=== PATIENT | female | born 1950 | race Caucasian/White ===

== ENCOUNTER 2023-08-24 09:43 | Outpatient (CLI) | payer MEDICARE, SELFPAY ==
--- NOTE | 2023-08-24 09:45 | CRLHL7_ITS ---
For Patients: As a result of the Century Cures Act, medical imaging exams and procedure reports are released immediately into your electronic medical record. You may view this report before your referring provider. If you have questions, please contact your health care provider. INDICATION: Cirrhosis COMPARISON: none TECHNIQUE: Real time chowdhury scale imaging and color Doppler analysis was performed of the right upper quadrant. FINDINGS: The patient`s liver is of normal size and has diffusely coarsened echogenicity. Lobular contour of the liver noted. There is a normal appearance of the hepatic IVC and proximal abdominal aorta. There is no evidence of ascites. The gallbladder is of normal size and there is no evidence of intraluminal stones or sludge. The gallbladder wall measures 2 mm in thickness. The common bile duct is of normal size and measures 4.7 mm in diameter at the level of the jaime hepatis. The pancreas appears normal. There is no evidence of a stone or hydronephrosis within the right kidney. The right kidney measures 11.1 cm in length. IMPRESSION: Cirrhotic liver. No ascites. Normal gallbladder. Dictated by Kai Montilla MD @ 08/24/2023 10:52:43 AM (Electronically Signed)
== END 2023-08-24 09:44 | disposition home or self-care (01) ==
PROVIDERS: Visit Provider Physician Assistant Medical
DX: K74.69 Other cirrhosis of liver (principal)
CPT/HCPCS: 76705

== ENCOUNTER 2024-08-31 19:08 | Emergency (ER) | payer MEDICARE, SELFPAY ==
[2024-08-31 19:23] VITALS: BP 145/103; PULSE 117; RESP 16; TEMP 36.3; O2SAT 97
[2024-08-31] MEDS: 0.9 % SODIUM CHLORIDE 500 ML 500 ML IV (20:12)
[2024-08-31 20:14] VITALS: BP 157/97
[2024-08-31 20:20] LABS: Basophils Absolute Auto 0.05 K/uL (0.00-0.30); Basophils Percent Auto 0.8 % (0.0-3.0); Eosinophils Percent Auto 1.5 % (0.0-7.0); Hematocrit 43.7 % (33.0-51.0); Hemoglobin* 14.9 gm/dL (12.0-16.0); Immature Granulocytes Abs Auto 0.01 K/uL (0.00-0.30); Immature Granulocytes Pct Auto 0.2 %; Lymphocytes Absolute Auto 2.44 K/uL (0.90-2.90); Lymphocytes Percent Auto 36.7 % (20-44); Mean Corpuscular HGB Conc 34 gm/dL (32-36); Mean Corpuscular Hemoglobin 30 pg (26-34); Mean Corpuscular Volume 87 fL (80-100); Monocytes Percent Auto 10.2 % (0.0-11.0); Neutrophils Absolute Auto 3.36 K/uL (1.7-7.0); Neutrophils Percent Auto 50.6 % (42.0-72.0); Platelet Count* 135 K/uL (140-440); RDW Coefficient of Variation % 12.5 % (11.5-15.5); Red Blood Count 5.04 m/uL (4.00-5.20); White Blood Count* 6.64 K/uL (4.50-11.00)
--- OUTSIDE RECORDS SUMMARY | 2024-08-31 20:21 | XMS_ITS | Continuity of Care Document ---
Author Organization [facility] Address [address] [place] [address] [address] [place] [address] Phone Care Team Providers Care Case Management Director Name Role Phone Loretta Thompson MD Unavailable Unavailable Medications Medication Instructions Dosage Effective Dates (start - stop) Status Comments Protivin 5 mg-325 mg tablet take 1 - 2 tablet by oral route every 4 - 6 hours as needed for pain 1-2 tablet - Active Procedures Procedure Date Postop followup visit X-ray exam, ankle, complete, 3+ views Oc Open treat distal fibular Fx Postop followup visit X-ray exam, ankle, complete, 3+ views Oc Apply short leg cast, below knee 2007 CAST SUP SHRT LEG [facility] EAC Office/outpatient visit, new, detailed S Advance Directives Directive Yes / No Effective Date File Name No Information Encounters Encounter Description Practice Location Reason(s) For Visit Diagnoses Date Provider Providers Copied on Encounter [facility], [address] [place] [address], [place], [address], [place] tel:[phone] [facility] No Information Jay Quinn. [address] [place] [address], [facility], [place], [place], [id number], . tel:[phone] Referring Provider: Jose Deleon, Federico [address] [place], [address]. tel:[phone] [facility], [address] [facility], [place], [address], [place] tel: [phone] [facility] [place] No Information Unique Goldstein. [address] [facility], [facility] [address], [place], [address], [place]. tel:[phone] Referring Provider: Jose Deleon, Federico [address] [place], [address]. tel: [phone] [facility], [address], [place], [address], [place] tel: [phone] [facility] [place] No Information Anya Patterson. 3 [facility], [address], [id number], [place]. tel:[phone] [facility], [address] [place] [address], [address], [place] tel:[phone] [facility] No Information Anya Patterson. 3 [facility], [address], [id number], [place]. tel:[phone] [facility], [address], [place], [address], [place] tel: [phone] [facility] [place] No Information Anya Patterson. 3 [facility], [address], [id number], [place]. tel:[phone] Office/outpat ient visit, new, detailed [facility], [address], [place], [address], [place] tel: [phone] [facility] No Information Anya Patterson. 3 [facility], [address], [id number], [place]. tel:[phone] Family History Family Member Type Diagnosis Age At Onset No Information Payers Payer name Insurance type Covered alliance party ID Authoriza tion(s) No Information Social History Type Description Quantity Date Captured Comments Sex Female Smoking Status No Information Chief Complaint And Reason For Visit No Information Reason For Referral Reason For Referral No Information History Of Present Illness Encounter Date Complaint History Of Prese nt Illness No Information Functional Status Date Functional Assessmen t No Information Instructions Date Instruction Additional Infor mation No Information Assessments Type Assessment Date No Information Patient Care Teams Name Effective Dates (start - stop) Status Members No Information
--- OUTSIDE RECORDS SUMMARY | 2024-08-31 20:21 | XMS_ITS | Clinical Summary ---
Author Organization [facility] Address [place], [place] [address] Care Team Providers Care Woods Boss Name Role Phone Provider, Non-[facility] Primary Care Provider Un available Immunizations Name Administration Dates Next Due COVID-19 vaccine (Moderna 100mcg/0.5mL) PF, MDV 01/22/2021,12/18/2020 COVID-19 vaccine (Moderna Gilberto estefany 50mcg/0.25mL) PF, MDV 11/13/2021 COVID-19 vaccine (Pfizer-Bio NTech 30mcg/0.3mL) 12YO+ NINI-SUCROSE PF, MDV 04/28/2022 Tdap, Unspecified 05/19/2012 Zoster (Zostavax-ZVL, live) 05/19/2012 Social History Tobacco Use Types Packs/Day Years Used Date Smoking Tobacco: Never Assessed Sex and Gender Information Value Date Recorded Sex Assigned at Not on file Gender Identity Not on file Sexual Orientation Not on file Plan of Treatment Health Maintenance Due Date Last Done Comments Depression screening for age 12+ 1962 BMI (ht and wt on same day) for age 18+ 1968 Hepatitis C screening for ag e 18-79 1968 Colonoscopy through age 75 1995 Lipids for age 45-75 1995 Mammogram for age 45-75 1995 Zoster (shingles) series for age 50+ (2 of 3) 07/14/2012 05/19/2012 DEXA/DXA scan for age 65+ 2015 Pneumococcal series for age 65+ (1 of 1 - PCV) 2015 Tetanus booster 05/19/2022 05/19/2012 COVID-19 vaccine series ( season) 2024 04/28/2022, 11/13/2021, 01/22/2021, Additional history exists Influenza for age 65+ 07/24/2024 Tdap Completed 05/19/2012 Care Teams Woods Boss Relationship Specialty Start Date End Date Provider, Non-[facility] . PCP - General 04/28/22
--- OUTSIDE RECORDS SUMMARY | 2024-08-31 20:22 | XMS_ITS | Encounter Summary ---
Author Organization [facility] Address [address] [place] [address] Care Team Providers Care Back Shoe Worker Name Role Phone Unavailable Primary Care Provider Unavailabl e Encounter Details Date Type Department Care Team (Late Contact Info) Description 06/22/2024 10:00 AM MDT Office Visit [facility] [address] [address] Ulysses Ruiz DMD [address] [place], [place] [id number] Social History Tobacco Use Types Packs/Day Years Used Date Smoking Tobacco: Never Smokeless Tobacco: Never Alcohol Use Standard Drinks/Week Comments Yes 3 (1 standard drink = 0.6 oz pur e alcohol) Comments Unknown Sex and Gender Information Value Date Recorded Sex Assigned at Not on file Legal Sex Female 1:16 PM PDT Gender Identity Not on file Sexual Orientation Not on file documented as of this encounter Miscellaneous Notes * Dental Procedure Details - Ulysses Ruiz DMD - 06/22/2024 10:00 AM MDT Coconut Cooker Delivery Night-guard delivered. Patient instructed on insertion, removal and care. Patient to return for necessary adjustment. documented in this encounter Plan of Treatment Upcoming Encounters Date Type Department Care Team (Late Contact Info) Description 01/16/2025 10:00 AM MST Office Visit [facility] [address] [place] [address] Ulysses Ruiz DMD [address] [place] [address] documented as of this encounter Procedures Procedure Name Priority Date/Time Associated Diagnosis Comments OCCLUSAL GUARD DELIVERY Routine 06/22/2024 10:00 AM MDT documented in this encounter Visit Diagnoses Not on filedocumented in this encounter
--- OUTSIDE RECORDS SUMMARY | 2024-08-31 20:22 | XMS_ITS | Clinical Summary ---
Author Organization [facility] Address [address] [place] [address] Phone Care Team Providers Care Wildlife Control Agent Name Role Phone Doc, Update Unavailable Unavailable Alexis SANTOS, Matti Unavailable [phone] Briana KOHLI - [facility], Maraí Montemayor Primary Care Prov ider [phone] Reason for Visit and Chief Complaint The Chief Complaint is: Follow up diarrhea,vomiting Problems Includes: Problems addressed during this encounter and other active Problems Current Visit Onset Date Resolved Date Provider Conditio n Status Abdominal Pain 12/02/2023 Matti Espinoza PA-C Active Last Documented On 4 1:11PM ; [facility] Cirrhosis 10/14/2022 Kai Byrnes MD Active Last Documented On 2 10:02AM ; [facility] Fatty Liver 07/29/2022 Kai Byrnes MD Active Last Documented On 2 9:09PM ; [facility] Past Visits Onset Date Resolved Date Provider Condition Status Hypertension Systemic 10/14/2022 Kai Byrnes MD Active Last Documented On 2 10:07AM ; [facility] Hyperlipidemia 07/29/2022 Kai Byrnes MD Acti ve Last Documented On 2 9:09PM ; [facility] Iron Deficiency Anemia 07/29/2022 Kai Byrnes MD Active Last Documented On 2 9:09PM ; [facility] Obesity 07/29/2022 Kai Byrnes MD Active Last Documented On 2 9:09PM ; [facility] Nonspecific Abnormal Results of Function Studies Liver 07/16/2022 Kai Byrnes MD Active Last Documented On 2 11:03AM ; [facility] Diarrhea 09/27/2020 Jorge Friedman MD Act darrel Last Documented On 0 3:24PM ; [facility] 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 Abdominal pain ?? Acute, episodic abdominal cramping. Associated N/V/D, flushing without diaphoresis, and palmar erythema/pruritus. ?? Occurs suddenly, without warning, and not associated with PO intake or bowel movements. ?? No alarm symptoms such as unintentional weight loss or GI bleeding. ?? Labs unremarkable without anemia. LFTs normal. ?? Prior bidirectional endoscopies largely unremarkable. ?? Very odd constellation of symptoms and no clear unifying diagnosis identified at this time. ?? Denies panic disorder. Considered dumping syndrome given history of prior gastric surgery, but feel this is unlikely as symptoms are not postprandial and occur so sporadically. ?? Other possibilities include neuroendocrine tumor / VIPoma, mast cell activation syndrome, AIP, pheochromocytoma. ?? Check 24 hours urine 5-HIAA, serum VIP, and tryptase. ?? Reportedly had recent CT for surveillance of prior GIST, and will request this report for review to ensure no lesion/mass. ?? Advised that she seek medical attention during an episode so evaluation can also be performed at that time. ?? Trial of hyoscyamine SL PRN. - Last Documented On 12/02/2023 8:24PM ; [facility] Pending Tests Order Diagnosis Results Due Ordering Noe serrano Follow Up OV - Follow-Up with VANI 3 Months with PA Unspecified abdominal pain 12/02/23 Matti Espinoza PA-C Last Documented On 4 4:00PM ; [facility] Lab URINE: 5-Hydroxyindo leacetic Acid (HIAA), Quant, 24-Hour 12/09/23 Matti Espinoza PA-C Last Documented On 4 8:22PM ; [facility] Lab LAB: Tryptase 12/09/23 Matti Welch Last Documented On 4 8:22PM ; [facility] Lab LAB: Vasoactive Intestinal Polypeptide (VIP), P lasma 12/09/23 Matti Espinoza PA-C Last Documented On 4 8:22PM ; [facility] Future Tests Order Diagnosis Results Due Ordering Pr ovider Follow Up OV - Follow-Up with VANI 3 Months with PA Unspecified abdominal pain 03/03/24 Matti Espinoza PA-C Last Documented On 4 10:51AM ; [facility] Assessments Includes: Assessments from this encounter Findings - Fatty liver - Last Documented On 12/02/2023 8:24PM ; [facility] - Cirrhosis - Last Documented On 12/02/2023 8:24PM ; [facility] - Abdominal pain - Last Documented On 12/02/2023 8:24PM ; [facility] Medical Equipment - Implanted Devices Includes: Current Devices No Medical Equipment Recorded Medications Includes: Medications discussed during this encounter and other current Medications New / Renewed during this visit Matti Espinoza PA-C on 12/02/2023 Hyoscyamine Sulfate 0.125 MG Sublingual Tablet Sublingual Provider: Matti Welch 30 day supply: 90 tablet, 1 refills Diagnosis: Unspecified abdominal pain 1 every 4 - 6 hours as needed Pharmacy: [facility] #[id number] - [address] [facility], [address] - Last Documented On 4 1:28PM By Matti Espinoza PA-C ; [facility] Current Medications (continue as prescribed) Tylenol PM Extra Strength 500-25 MG Oral Tablet 2023 Provider: Diagnosis: Last Documented On 4 10:25AM By Vickie Johns ; [facility] Pantoprazole Sodium 40 MG Oral Packet 03/03/2024 Pro vider: Diagnosis: PO Last Documented On 4 10:25AM By Vickie Johns ; [facility] Acyclovir 400 MG Oral Tablet 03/03/2024 Provider: Diagnosis: PO. Last Documented On 4 10:26AM By Vickie Johns ; [facility] Medications Administered Includes: Administered Medications from this encounter No Administered Medications Recorded Vital Signs Includes: Vital Signs from this encounter Vital Name 12/02/2023 12:45P Blood Pressure Sitting L 132/74 Pulse Rate-Sitting (bpm) 64 Height (in) 64 Weight (lb) 177 Body Mass Index (kg/m2) 30.4 Body Surface Area (m2) 1.9 Last Documented: On 12/02/2023 12:49P M ; [facility] Results Includes: Results discussed during this encounter No Results Recorded For Specified Dates History of Present Illness Includes: History of Present Illness from this encounter RODOLFO Cruz is a 73 year old female. - Allergy list reviewed - Medication reconciliation performed This is a 73 year old female with history of GIST s/p neoadjuvant chemotherapy, s/p partial gastrectomy, steatotic liver disease with concern for cirrhosis presenting for follow up. Has seen my colleagues Dr Byrnes and Joceline Temple PA-C for management of liver disease. Today specifically, patient wishes to discuss chronic abdominal symptoms. Reports intermittent acute episodes of abdominal pain, N/V, and diarrhea. Occurs suddenly, without warning. Feels flushed during these episodes, with palmar erythema and itching. Unclear triggers, and does not occur with eating, or with bowel movements. Takes pepto-bismol with mild relief. Lasts a few hours, then slowly resolves. Next day, feels fatigued but no more pain or N/V/D. By the next day, she feels back to her normal self. These episodes occur 4-5 times a year. Never went to the ER during these episodes for evaluation. At baseline, she feels well. No pain. Has some early satiety following her partial gastrectomy, but no vomiting. GERD well controlled on PPI therapy. No GI bleeding. Lost 40 pounds intentionally this past year, with intermittent fasting. Most recent labs 07/2023 unremarkable without anemia, and only mild thrombocytopenia. LFTs normal. Reportedly had CT done recently, as per her oncologist. EGD/colonoscopy 06/2022 unremarkable with biopsies negative for H pylori, celiac disease, and colitis. No ETOH misuse or illicit drug use. Denies anxiety or history of panic attacks. Social History Description Last Updated Alcoholic drinks per drinking day 2-3 x aweek 12/02/2023 Last Documented On 4 8:24PM ; [facility] Smoking an unspecified numbe r of cigarettes per day Number of cigarettes per day 12/02/2023 Last Documented On 4 8:24PM ; [facility] Alcoholic drinks per drinking day 08/2024 Last Documented On 4 8:24PM ; [facility] Caffeine use 12 oz per day 12/02/2023 Last Documented On 4 8:24PM ; [facility] Not a current smokeless tobacco user 08/2024 Last Documented On 4 8:24PM ; [facility] Not a current smoker 12/02/2023 Last Documented On 4 8:24PM ; [facility] Not using drugs 12/02/2023 Last Documented On 4 8:24PM ; [facility] Using marijuana Once per week 12/02/2023 Last Documented On 4 8:24PM ; [facility] Smoking Status Unknown Procedures and Surgical History Surgical History Last Updated History of abdominal / peritoneal surger y 12/02/2023 Last Documented On 4 8:24PM ; [facility] History of eye surgery 12/02/2023 Last Documented On 4 8:24PM ; [facility] History of knee surgery 12/02/2023 Last Documented On 4 8:24PM ; [facility] Medical History Includes: Medical History addressed during this encounter Description Last Updated Complete colonoscopy 07/09/2022 EGD 07-09 ~Fibroscan 10-14-2023 12/02/2023 Last Documented On 4 8:24PM ; [facility] History of arthritis 12/02/2023 Last Documented On 4 8:24PM ; [facility] History of cancer GIST 12/02/2023 Last Documented On 4 8:24PM ; [facility] History of migraine headache 12/02/2023 Last Documented On 4 8:24PM ; [facility] Family History Includes: Family History addressed during this encounter Description Last Updated Family history of No Family History of B reast Cancer 12/02/2023 Last Documented On 4 8:24PM ; [facility] Family history of No Family History of C eliac Disease 12/02/2023 Last Documented On 4 8:24PM ; [facility] Family history of No Family History of C olon Polyps 12/02/2023 Last Documented On 4 8:24PM ; [facility] Family history of No Family History of C olorectal Cancer 12/02/2023 Last Documented On 4 8:24PM ; [facility] Family history of No Family History of C rohn's Disease 12/02/2023 Last Documented On 4 8:24PM ; [facility] Family history of No Family History of Esophageal Cancer/Duenas's Esophagus 12/02/2023 Last Documented On 4 8:24PM ; [facility] Family history of No Family History of G astric Cancer 12/02/2023 Last Documented On 4 8:24PM ; [facility] Family history of No Family History of P ancreatic Cancer 12/02/2023 Last Documented On 4 8:24PM ; [facility] Family history of No Family History of U lcerative Colitis 12/02/2023 Last Documented On 4 8:24PM ; [facility] Family history of No Family History of U terine/Cervical Cancer 12/02/2023 Last Documented On 4 8:24PM ; [facility] No known Family History of Breast Cancer 12/02/2023 Last Documented On 4 8:24PM ; [facility] No known Family History of Celiac Diseas e 12/02/2023 Last Documented On 4 8:24PM ; [facility] No known Family History of Colon Polyps 12/02/2023 Last Documented On 4 8:24PM ; [facility] No known Family History of Colorectal Ca ncer 12/02/2023 Last Documented On 4 8:24PM ; [facility] No known Family History of Crohn's Disea se 12/02/2023 Last Documented On 4 8:24PM ; [facility] No known Family History of Esophageal Ca ncer/Duenas's Esophagus 12/02/2023 Last Documented On 4 8:24PM ; [facility] No known Family History of Gastric Cance r 12/02/2023 Last Documented On 4 8:24PM ; [facility] No known Family History of Pancreatic Ca ncer 12/02/2023 Last Documented On 4 8:24PM ; [facility] No known Family History of Ulcerative Co litis 12/02/2023 Last Documented On 4 8:24PM ; [facility] No known Family History of Uterine/Cervi yolanda Cancer 12/02/2023 Last Documented On 4 8:24PM ; [facility] Review of Systems Includes: Review of Systems from this encounter No Review of Systems Recorded Mental Status Includes: Mental Status from this encounter No Mental Status Recorded Functional Status Includes: Functional Status from this encounter No Functional Status Recorded Physical Exam Includes: Physical Exam from this encounter Allergies Includes: Active Allergies Substance Type Reaction Onset Date Resolved Date Statu s Amoxicillin Allergy 04/12/2021 Active Last Documented On 4 10:31AM ; [facility] Encounters Encounter Provider Location Date Check-In Time Check-Out Time Diagnosis Office Visit PASav Espinoza PA-C [facility] 12/02/19 24 12:38PM 1:42PM Fatty Liver,Cirrhos is,Abdominal Pain Insurance Includes: Active Insurance Policies Plan Name Member ID Group # Subscriber Relationship Effect darrel Dates 1 - [employer] Claim [id number] Suzanna zurita Clinical Notes Includes: Clinical Notes from this encounter No Clinical Notes Recorded
--- OUTSIDE RECORDS SUMMARY | 2024-08-31 20:22 | XMS_ITS | Clinical Summary ---
Author Organization [facility] Address [address] [place] [address] Care Team Providers Care Varnish Dipper Name Role Phone Unavailable Primary Care Provider Unavailabl e Allergies Active Allergy Reactions Criticality Noted Date Comments Amoxicillin Hives,Rash,Other High 03/26/1998 1998-03-26 1998-03-26, all over rash, avoid Aspirin GI bleeding 09/25/2021 Not sure if from the cancer or this Imatinib Other Medium 10/27/2019 Edema; eyelid edema and generalized Nsaids (Non-Steroidal Anti-Inflammatory Drug) GI bleeding 09/25/2021 Not sure if from the cancer or this Medications acyclovir (ZOVIRAX) 400 mg tablet Take 2 capsules by mouth. 03/03/2024 Active acetaminophen (TYLENOL) 500 mg tablet Take 1,000 mg by mouth. Active pantoprazole (PROTONIX) 40 mg EC tablet Take 1 tablet by mouth every morning before breakfast. Do not crush, chew, or split. 04/19/2024 Active ACYCLOVIR ORAL Activ e MULTIVITAMIN ORAL Active pantoprazole (PROTONIX) 40 mg EC tablet Active Active Problems Problem Noted Date Diagnosed Date Iron deficiency 07/13/2024 Hyperlipidemia 07/29/2022 Gastroesophageal reflux disease 10/31/2019 S/P total knee replacement, right 02/23/2019 Encounters Date Type Department Care Team Description 07/13/2024 10:00 AM MDT Office Visit [facility] [address] [place] [address] Dez Gan, ROBBI 06/22/2024 10:00 AM MDT Office Visit [facility] [address] [place] [address] Ulysses Ruiz DMD 06/14/2024 10:00 AM MDT Office Visit [facility] [address] [address] Ulysses Ruiz DMD Encounter for dental examination and cleaning without abnormal findings (Primary Dx) from Last 3 Months Social History Tobacco Use Types Packs/Day Years Used Date Smoking Tobacco: Never Smokeless Tobacco: Never Tobacco Cessation:Counseling Given: Not Answered Alcohol Use Standard Drinks/Week Comments Yes 3 (1 standard drink = 0.6 oz pur e alcohol) Comments Unknown Sex and Gender Information Value Date Recorded Sex Assigned at Not on file Legal Sex Female 1:16 PM PDT Gender Identity Not on file Sexual Orientation Not on file Last Filed Vital Signs Vital Sign Reading Time Taken Comments Blood Pressure 137/74 06/14/2024 10:04 AM MDT Pulse 64 06/14/2024 10:04 AM MDT Temperature - - Respiratory Rate - - Oxygen Saturation - - Inhaled Oxygen Concentration - - Weight 79.4 kg (175 lb) 06/14/2024 10:04 AM MDT Height 160 cm (5' 3) 06/14/2024 10:04 AM MDT Body Mass Index 31 06/14/2024 10:04 AM MDT Plan of Treatment Upcoming Encounters Date Type Department Care Team (Late st Contact Info) Description 01/16/2025 10:00 AM MST Office Visit [facility] [address] [place] [address] Ulysses Ruiz DMD [address] [place] [address] [phone] Health Maintenance Due Date Last Done Comments Dental Oral Exam 12/16/2024 06/14/2024 Dental Prophylaxis 12/16/2024 06/14/2024 Dental X-Ray: Bitewings 12/16/2024 06/14/2024 Dental CBCT 06/14/2027 06/14/2024 Dental X-Ray: Full Mouth 06/16/2027 06/15/2024, 05/24 Dental X-Ray: Panoramic 06/18/2027 06/17/2024 Procedures Procedure Name Priority Date/Time Associated Diagnosis Comments PERIO CONSULT Routine 07/13/2024 10:00 AM MDT OCCLUSAL GUARD DELIVERY Routine 06/22/20 10:00 AM MDT OCCLUSAL GUARD ? HARD APPLIANCE, FULL ARCH Routine 06/14/2024 10:00 AM MDT ORAL HYGIENE INSTRUCTIONS Routine 2023 10:00 AM MDT PROPHYLAXIS - ADULT Routine 06/14/2024 1 0:00 AM MDT Encounter for dental examination and cleaning without abnormal findings INTRAORAL PHOTO Routine 06/14/2024 10:00 AM MDT INTRAORAL PHOTO Routine 06/14/2024 10:00 AM MDT INTRAORAL PHOTO Routine 06/14/2024 10:00 AM MDT INTRAORAL PHOTO Routine 06/14/2024 10:00 AM MDT ADDITIONAL X-RAY Routine 06/14/2024 10:0 0 AM MDT ADDITIONAL X-RAY Routine 06/14/2024 10:0 0 AM MDT ADDITIONAL X-RAY Routine 06/14/2024 10:0 0 AM MDT ADDITIONAL X-RAY Routine 06/14/2024 10:0 0 AM MDT ADDITIONAL X-RAY Routine 06/14/2024 10:0 0 AM MDT POCKETED SPRING ASSEMBLER CBCT Routine 06/14/2024 10:00 AM MDT COMPREHENSIVE ORAL EVALUATION - NEW OR ESTABLISHED PATIENT Routine 06/14/2024 10:00 AM MDT Encounter for dental examination and cleaning without abnormal findings SINGLE X-RAY Routine 06/14/2024 10:00 AM MDT BITEWINGS - FOUR RADIOGRAPHIC IMAGES Routine 06/14/2024 10:00 AM MDT 2 ROOT CANAL Routine 06/14/2024 12:00 AM MDT 5 DO COMPOSITE FILLING Routine 12:00 AM MDT 4 MOD COMPOSITE FILLING Routine 06/14/20 12:00 AM MDT 31 MOD AMALGAM FILLING Routine 12:00 AM MDT 30 ZIRCONIA CROWN Routine 06/14/2024 12: 00 AM MDT 3 ZIRCONIA CROWN Routine 06/14/2024 12:0 0 AM MDT 2 ZIRCONIA CROWN Routine 06/14/2024 12:0 0 AM MDT 10 ML COMPOSITE FILLING Routine 06/14/20 12:00 AM MDT 9 MDL COMPOSITE FILLING Routine 06/14/20 12:00 AM MDT 8 ML COMPOSITE FILLING Routine 12:00 AM MDT 20 DO COMPOSITE FILLING Routine 06/14/20 12:00 AM MDT 13 DO AMALGAM FILLING Routine 06/14/2024 12:00 AM MDT 12 DO AMALGAM FILLING Routine 06/14/2024 12:00 AM MDT 14 ZIRCONIA CROWN Routine 06/14/2024 12: 00 AM MDT 15 ZIRCONIA CROWN Routine 06/14/2024 12: 00 AM MDT 19 ZIRCONIA CROWN Routine 06/14/2024 12: 00 AM MDT 18 ZIRCONIA CROWN Routine 06/14/2024 12: 00 AM MDT from Last 3 Months Insurance [facility]
--- OUTSIDE RECORDS SUMMARY | 2024-08-31 20:22 | XMS_ITS ---
Author Organization [facility] Address [address] [place] [address] Care Team Providers Care Pie Maker Name Role Phone Unavailable Unavailable Unavailable Surgery Details Not on file Complications Check Surgery Details section. Procedure Estimated Blood Loss Check Surgery Details section. Procedure Findings Check Surgery Details section. Procedure Specimens Taken Check Surgery Details section.
--- OUTSIDE RECORDS SUMMARY | 2024-08-31 20:22 | XMS_ITS | Referral Summary ---
Author Organization [facility] Address [address] [place] [address] Care Team Providers Care Agricultural Crop Farm Manager Name Role Phone Unavailable Primary Care Provider Unavailabl e Encounters Date Type Department Care Team Description 07/13/2024 10:00 AM MDT Office Visit [address] [id number] Dez Gan DDS 06/22/2024 10:00 AM MDT Office Visit [facility] [address] [place] [address] Ulysses Ruiz DMD 06/14/2024 10:00 AM MDT Office Visit [address] [address] Ulysses Ruiz DMD Encounter for dental examination and cleaning without abnormal findings (Primary Dx) from Last 3 Months Allergies Active Allergy Reactions Criticality Noted Date [...] 10/31/2019 S/P total knee replacement, right 02/23/2019 Social History Tobacco Use Types Packs/Day Years [...] Description 01/16/2025 10:00 AM MST Office Visit [facility] [address] [place] [address] Ulysses Ruiz, DMD [address] [place] [address] Procedures Procedure Name Priority Date/Time Associated Diagnosis [...] X-RAY Routine 06/14/2024 10:0 0 AM MDT CLAIMS AUDITOR CBCT Routine 06/14/2024 10:00 AM MDT COMPREHENSIVE [...] AM MDT from Last 3 Months Insurance [facility] [place] [id number]
--- OUTSIDE RECORDS SUMMARY | 2024-08-31 20:22 | XMS_ITS | Clinical Summary ---
Author Organization [facility] Address [address] [place] [address] Phone Care Team Providers Care Executive Admin Name Role Phone Doc, Update Unavailable Unavailable Matti Espinoza PA-C Unavailable [phone] Briana KOHLI - [facility], María Montemayor Primary Care Prov ider [phone] Reason for Visit and Chief Complaint The Chief Complaint is: Follow up Fatty Liver Problems Includes: Problems addressed during this encounter and other active Problems Current Visit Onset Date Resolved Date Provider Conditio n Status Cirrhosis 10/14/2022 Kai Byrnes MD Active Last Documented On 2 10:02AM ; [facility] Hypertension Systemic 10/14/2022 Kai Byrnes MD Active Last Documented On 2 10:07AM ; [facility] Hyperlipidemia 07/29/2022 Kai Byrnes MD Acti ve Last Documented On 2 9:09PM ; [facility] Iron Deficiency Anemia 07/29/2022 Kai Byrnes MD Active Last Documented On 2 9:09PM ; [facility] Fatty Liver 07/29/2022 Kai Byrnes MD Active Last Documented On 2 9:09PM ; [facility] Obesity 07/29/2022 Kai Byrnes MD Active Last Documented On 2 9:09PM ; [facility] Past Visits Onset Date Resolved Date Provider Condition Status Abdominal Pain 12/02/2023 Matti Espinoza PA-C Active Last Documented On 4 1:11PM ; [facility] Nonspecific Abnormal Results of Function Studies Liver 07/16/2022 Kai Byrnes MD Active Last Documented On 2 11:03AM ; [facility] Diarrhea 09/27/2020 Jorge Friedman MD Act darrel Last Documented On 0 3:24PM ; [facility] 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 Jorge Friedman MD Active Last Documented On 0 9:51AM ; [facility] Plan of Treatment - repeat labs in 4 months including: CMP, CBC, INR, AP - repeat FibroScan now to reassess steatosis/fibrosis - ascites/edema: Euvolemic on exam today. - HE: none; not on medications - HCC screenin08/2023 RUQ US negative, repeat 02/2024. - EV: last EGD (07/09/22) was without varices. Consider repeat in 06/2024, pending FibroScan results. - immune status: completed HAV and HBV vaccines. - hepatotoxins: she uses tylenol 625 mg qhs, 3 alcoholic drinks per week, and ibuprofen 400-600 mg every 1-2 weeks. Discussed okay to continue tylenol, and would ask her to avoid all NSAIDs. In regards to alcohol, if her repeat FibroScan shows F4 fibrosis, she should discontinue all alcohol use. - iron deficiency anemia: no clear cause on bidirectional endoscopy 07/09/22; labs have been stable x1 year without any need for iron supplementation. - follow-up visit in 6 months - Last Documented On 09/15/2023 10:19AM ; [facility] Pending Tests Order Diagnosis Results Due Ordering Noe serrano Lab LAB: Complete Metabo lic Panel (CMP) 06/04/23 Joceline Temple PA-C Last Documented On 3 2:49PM ; [facility] Lab LIVER: Prothrombin Time (PT)/INR Joceline Temple PA-C Last Documented On 3 2:49PM ; [facility] Lab LAB: Complete Blood Count (CBC) with Differenti al 06/04/23 Joceline Temple PA-C Last Documented On 3 2:49PM ; [facility] Imaging - Ultrasound RUQ Abdominal Ultrasound Other cirrhosis of liver 08/26/23 Joceline Temple PA-C Last Documented On 3 2:08PM ; [facility] Follow Up OV - Follow-Up with VANI 6 Months with PA Other cirrhosis of liver 09/15/23 Joceline Temple PA-C Last Documented On 4 2:17PM ; [facility] Imaging - FibroScan FibroScan Other cirrhosis of liver Joceline Temple PA-C Last Documented On 3 10:07AM ; [facility] Assessments Includes: Assessments from this encounter Findings - Hypertension - Last Documented On 09/15/2023 10:19AM ; [facility] - Fatty liver - Last Documented On 09/15/2023 10:19AM ; [facility] - Cirrhosis - Last Documented On 09/15/2023 10:19AM ; [facility] - Hyperlipidemia - Last Documented On 09/15/2023 10:19AM ; [facility] - Obesity - Last Documented On 09/15/2023 10:19AM ; [facility] - Iron deficiency anemia - Last Documented On 09/15/2023 10:19AM ; [facility] Suzanna is a pleasant 73-year-old female with 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 She has lost around 35 lb in the last year with normalization of her liver enzymes. Congratulated her on this great achievement. - Last Documented On 09/15/2023 10:19AM ; [facility] Medical Equipment - Implanted Devices Includes: Current Devices No Medical Equipment Recorded Medications Includes: Medications discussed during this encounter and other current Medications Current Medications (continue as prescribed) Tylenol PM Extra Strength 500-25 MG Oral Tablet 2023 Provider: Diagnosis: Last Documented On 4 10:25AM By Vickie Johns ; [facility] Pantoprazole Sodium 40 MG Oral Packet 03/03/2024 Pro vider: Diagnosis: PO Last Documented On 4 10:25AM By Vickie Johns ; [facility] Acyclovir 400 MG Oral Tablet 03/03/2024 Provider: Diagnosis: PO. Last Documented On 4 10:26AM By Vickie Johns ; [facility] Hyoscyamine Sulfate 0.125 MG Sublingual Tablet Sublingual 12/02/2023 Provider: Matti Welch Diagnosis: Unspecified abdo jose pain 1 every 4 - 6 hours as needed Last Documented On 4 1:28PM By Matti Espinoza PA-C ; [facility] Medications Administered Includes: Administered Medications from this encounter No Administered Medications Recorded Vital Signs Includes: Vital Signs from this encounter Vital Name 09/15/2023 09:50A Blood Pressure Sitting L 148/92 Pulse Rate-Sitting (bpm) 64 Height (in) 64 Weight (lb) 177.4 Body Mass Index (kg/m2) 30.5 Body Surface Area (m2) 1.9 Last Documented: On 09/15/2023 9:52AM ; 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 She was last seen in clinic 6 months ago after intentionally losing 25 lb. She is feeling well, has no concerns today. She is wearing a mask due to recent COVID exposure. She has questions about if she has liver disease or not. She never knows what is answer on forms etc. She has no new symptoms of liver disease. Specifically she states no jaundice, edema, ascites, confusion abdominal pain. Her GERD is well controlled on pantoprazole 40 mg daily. If she holds this medicine she has return of significant heartburn. She completed labs in July that show a meld of 7, overall her labs were normal aside from a platelet of 145. She is up-to-date on HCC screening with a negative ultrasound 08/24/2023. She does consume alcohol around 3 drinks per week. She did complete the HBV and HAV vaccine series. Social History Description Last Updated Alcoholic drinks per drinking day 1 long dickerson every other day 09/15/2023 Last Documented On 3 10:19AM ; [facility] Drug use 09/15/2023 Last Documented On 3 10:19AM ; [facility] Caffeine use 12 oz per day 09/15/2023 Last Documented On 3 10:19AM ; [facility] Not a current smokeless tobacco user Last Documented On 3 10:19AM ; [facility] Not a current smoker 09/15/2023 Last Documented On 3 10:19AM ; [facility] Using marijuana Once per week 09/15/2023 Last Documented On 3 10:19AM ; [facility] Smoking Status Unknown Procedures and Surgical History Surgical History Last Updated Prior surgery Tumor removed from stomach 11/01/2019 09/15/2023 Last Documented On 3 10:19AM ; [facility] History of eye surgery 09/15/2023 Last Documented On 3 10:19AM ; [facility] History of knee surgery 09/15/2023 Last Documented On 3 10:19AM ; [facility] Medical History Includes: Medical History addressed during this encounter Description Last Updated Complete colonoscopy and EGD 07/09/2022 09/15/2023 Last Documented On 3 10:19AM ; [facility] History of arthritis 09/15/2023 Last Documented On 3 10:19AM ; [facility] History of cancer GIST 09/15/2023 Last Documented On 3 10:19AM ; [facility] History of migraine headache 09/15/2023 Last Documented On 3 10:19AM ; [facility] Family History Includes: Family History addressed during this encounter Description Last Updated No known Family History of Breast Cancer 09/15/2023 Last Documented On 3 10:19AM ; [facility] No known Family History of Celiac Diseas e 09/15/2023 Last Documented On 3 10:19AM ; [facility] No known Family History of Colon Polyps 09/15/2023 Last Documented On 3 10:19AM ; [facility] No known Family History of Colorectal Ca ncer 09/15/2023 Last Documented On 3 10:19AM ; [facility] No known Family History of Crohn's Disea se 09/15/2023 Last Documented On 3 10:19AM ; [facility] No known Family History of Esophageal Ca ncer/Duenas's Esophagus 09/15/2023 Last Documented On 3 10:19AM ; [facility] No known Family History of Gastric Cance r 09/15/2023 Last Documented On 3 10:19AM ; [facility] No known Family History of Pancreatic Ca ncer 09/15/2023 Last Documented On 3 10:19AM ; [facility] No known Family History of Ulcerative Co litis 09/15/2023 Last Documented On 3 10:19AM ; [facility] No known Family History of Uterine/Cervi yolanda Cancer 09/15/2023 Last Documented On 3 10:19AM ; [facility] Review of Systems Includes: Review of Systems from this encounter Systemic: Not feeling tired. No fever. Recent weight loss. No recent weight gain. Head: No headache. Cardiovascular: No chest pain or discomfort and no palpitations. Pulmonary: No shortness of breath. No cough and no chronic wheezing. Gastrointestinal: No anorexia. No dysphagia. Heartburn. No nausea, no vomiting, and no hematemesis. No bloating and no abdominal pain. No jaundice, no change in bowel habit, no melena, no hematochezia, and no mucus in the stool. No diarrhea and no constipation. No rectal pain. Genitourinary: No hematuria and no increase in urinary frequency. No burning sensation during urination and no . Endocrine: No polydipsia and no excessive sweating. Hematologic: No tendency for easy bruising. Neurological: No dizziness. Psychological: No anxiety and no depression. Skin: Pruritus and rash:. Mental Status Includes: Mental Status from this encounter Description No anxiety Functional Status Includes: Functional Status from this encounter No Functional Status Recorded Physical Exam Includes: Physical Exam from this encounter Allergies Includes: Active Allergies Substance Type Reaction Onset Date Resolved Date Statu s Amoxicillin Allergy 04/12/2021 Active Last Documented On 4 10:31AM ; [facility] Encounters Encounter Provider Location Date Check-In Time Check-Out Time Diagnosis Office Visit PA- 20 Min Joceline Temple PA-C [facility] Office 09/15/20 23 9:36AM 10:19AM Fatty Liver,Cirrhosi s,Iron Deficiency Anemia,Hyperte nsion Systemic,Obesi ty,Hyperlipide patria Insurance Includes: Active Insurance Policies Plan Name Member ID Group # Subscriber Relationship Effect darrel Dates 1 - [employer] Claim [id number] Suzanna zurita Clinical Notes Includes: Clinical Notes from this encounter No Clinical Notes Recorded
--- OUTSIDE RECORDS SUMMARY | 2024-08-31 20:22 | XMS_ITS | Clinical Summary ---
Author Organization [facility] Address [address] [place] [address] Phone Care Team Providers Care Airfreight Loading Supervisor Name Role Phone Doc, Update Unavailable Unavailable Alexis SANTOS, Matti Unavailable [phone] Briana KOHLI - [facility], María Montemayor Primary Care Prov ider [phone] Reason for Visit and Chief Complaint FibroScan Problems Includes: Problems addressed during this encounter and other active Problems All Visits Onset Date Resolved Date Provider Condition S tatus Abdominal Pain 12/02/2023 Matti Espinoza PA-C Active Last Documented On 4 1:11PM ; [facility] Cirrhosis 10/14/2022 Kai Byrnes MD Active Last Documented On 2 10:02AM ; [facility] Hypertension Systemic 10/14/2022 Kai Byrnes MD Active Last Documented On 2 10:07AM ; [facility] Hyperlipidemia 07/29/2022 Kai Byrnes MD Acti ve Last Documented On 2 9:09PM ; [facility] Iron Deficiency Anemia 07/29/2022 Kai Byrnes MD Active Last Documented On 2 9:09PM ; [facility] Fatty Liver 07/29/2022 Kai Byrnes MD Active Last Documented On 2 9:09PM ; [facility] Obesity 07/29/2022 Kai Byrnes MD Active Last Documented On 2 9:09PM ; [facility] Nonspecific Abnormal Results of Function Studies Liver 07/16/2022 Kai Byrnes MD Active Last Documented On 2 11:03AM ; [facility] Diarrhea 09/27/2020 Jorge Friedman MD Act darrel Last Documented On 0 3:24PM ; [facility] 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 Jorge Friedman MD Active Last Documented On 0 9:51AM ; [facility] Plan of Treatment Pending Tests Order Diagnosis Results Due Ordering P rovider Lab LAB: Complete Metabo lic Panel (CMP) 06/04/23 Joceline Temple PA-C Last Documented On 3 2:49PM ; [facility] Lab LIVER: Prothrombin Time (PT)/INR Joceline Temple PA-C Last Documented On 3 2:49PM ; [facility] Lab LAB: Complete Blood Count (CBC) with Differenti al 06/04/23 Joceline Temple PA-C Last Documented On 3 2:49PM ; [facility] Imaging - Ultrasound RUQ Abdominal Ultrasound Other cirrhosis of liver 08/26/23 Joceline Temple PA-C Last Documented On 3 2:08PM ; [facility] Imaging - FibroScan FibroScan Other cirrhosis of liver Joceline Temple PA-C Last Documented On 3 10:07AM ; [facility] Assessments Includes: Assessments from this encounter Findings FibroScan (Transient Elastography of Liver) Report Test Date: 10/14/2023 Indication for exam: Cirrhosis Test Result: F3, S1-S2 Diagnosis:NAFLD/MASLD with advanced F3 Fibrosis Median liver stiffness: 10.3 kPa CAP score: 251 dB/m Image quality overall: good. - Last Documented On 10/19/2023 5:15AM ; [facility] ----- Procedure description: The patient was fasting for at least 3 hours prior to the procedure. The following were verified prior to performance of FibroScan: 1. Patient age was 18 years or older 2. Patient did not have a wound in the FibroScan region of interest There were no obvious technical difficulties related to the performance of the procedure. The patient underwent FibroScan test of liver stiffness which is a non-invasive measurement of shear wave speed and equivalent stiffness of liver. The procedure was performed without difficulty. Interpretation of FibroScan Results: The FibroScan device measures the liver's stiffness, a physical property of the liver which correlates with the stage of fibrosis. The FDA has approved FibroScan for measurement of liver stiffness as a surrogate for stage of liver fibrosis, but FibroScan does not directly measure liver fibrosis nor does FibroScan give information regarding other aspects of liver histology, such as the degree of inflammation or the type of liver injury. Stage of fibrosis measured by FibroScan may be less accurate (falsely increased) by hepatic steatosis, increased body mass index, hepatic inflammation (as may be reflected by ALT >130), hepatic congestion, infiltrative disease of the liver, hepatic iron accumulation, or post-prandial state. These factors must be considered when interpreting FibroScan results. The following table displays the relationships of liver stiffness values to stage of liver fibrosis by etiology of liver disease. Cutoffs vary by etiology of liver disease. For example, the cutoff for cirrhosis is >17 for cholestatic liver diseases such as PBC or PSC, compared to a cutoff >12 for chronic hepatitis C. Interpretation of controlled attenuation parameter (CAP) for hepatic steatosis detection: CAP is a tool to determine grade of hepatic steatosis with values ranging from 100 to 400 dB/m. Higher numbers indicate more pronounced steatosis. As with all procedures and tests, the results of FibroScan must be interpreted in the context of the patient's clinical and demographic features. - Last Documented On 10/19/2023 5:15AM ; [facility] Equipment - Implanted Devices Includes: Current Devices No Medical Equipment Recorded Medications Includes: Medications discussed during this encounter and other current Medications Current Medications (continue as prescribed) Tylenol PM Extra Strength 500-25 MG Oral Tablet 2023 Provider: Diagnosis: Last Documented On 4 10:25AM By Vickie Johns ; [facility] Pantoprazole Sodium 40 MG Oral Packet 03/03/2024 Pro vider: Diagnosis: PO Last Documented On 4 10:25AM By Vickie Johns ; [facility] Acyclovir 400 MG Oral Tablet 03/03/2024 Provider: Diagnosis: PO. Last Documented On 4 10:26AM By Vickie Johns ; [facility] Hyoscyamine Sulfate 0.125 MG Sublingual Tablet Sublingual 12/02/2023 Provider: Matti Welch Diagnosis: Unspecified abdo jose pain 1 every 4 - 6 hours as needed Last Documented On 4 1:28PM By Matti Espinoza PA-C ; [facility] Medications Administered Includes: Administered Medications from this encounter No Administered Medications Recorded Results Includes: Results discussed during this encounter No Results Recorded For Specified Dates History of Present Illness Includes: History of Present Illness from this encounter No History of Present Illness Recorded Social History No Social History Recorded - Smoking Status Unknown Procedures and Surgical History Includes: Procedures from this encounter Procedures Code Diagnosis Performing Provider Service Location Service Date FibroScan (Liver Elastography) [address] Fatty (change of) liver, not elsewhere classified, Hepatic fibrosis, advanced fibrosis Joceline Temple PA-C [facility] 10/14/2023 Last Documented On 3 12:14PM ; [facility] Medical History Includes: Medical History addressed during this encounter No Medical History Recorded Family History Includes: Family History addressed during this encounter No Family History Recorded Review of Systems Includes: Review of Systems from this encounter No Review of Systems Recorded Mental Status Includes: Mental Status from this encounter No Mental Status Recorded Functional Status Includes: Functional Status from this encounter No Functional Status Recorded Physical Exam Includes: Physical Exam from this encounter No Physical Exam Recorded Allergies Includes: Active Allergies Substance Type Reaction Onset Date Resolved Date Statu s Amoxicillin Allergy 04/12/2021 Active Last Documented On 4 10:31AM ; [facility] Encounters Encounter Provider Location Date Check-In Time Check-Out Time Diagnosis FibroScan Joceline Temple PA-C [facility] 3 9:34AM 9:49AM Insurance Includes: Active Insurance Policies Plan Name Member ID Group # Subscriber Relationship Effect darrel Dates 1 - [employer] Care Claim [id number] Suzanna Lloyd [facility] Clinical Notes Includes: Clinical Notes from this encounter No Clinical Notes Recorded
--- OUTSIDE RECORDS SUMMARY | 2024-08-31 20:22 | XMS_ITS | Encounter Summary ---
Author Organization [facility] Address [address] [place] [address] Care Team Providers Care Insulation Technician Name Role Phone Unavailable Primary Care Provider Unavailabl e Reason for Visit * Reason Comments New Patient No concerns. Routine check up and cleaning Encounter Details Date Type Department Care Team (Late st Contact Info) Description 06/14/2024 10:00 AM MDT Office Visit [facility] [address] [place] [id number] Ulysses Ruiz, [facility] [address], [place] [id number] Encounter for dental examination and cleaning without abnormal findings (Primary Dx) Social History Tobacco Use Types Packs/Day Years [...] on file documented as of this encounter Last Filed Vital Signs Vital Sign Reading [...] Mass Index 31 06/14/2024 10:04 AM MDT documented in this encounter Miscellaneous Notes * Dental Procedure Details - Ulysses Ruiz, DMD - 06/14/2024 10:00 AM MDT Exam with Prophy Note Chief Condition: no complaint, wants prophylaxis Past Medical History: Diagnosis Date Acid reflux Cancer (CMS/HCC) (HCC) (CMS/HCC) Diverticulitis of colon Past Surgical History: Procedure Laterality Date JOINT REPLACEMENT 2021 Social History Tobacco Use Smoking status: Never Smokeless tobacco: Never Substance Use Topics Alcohol use: Yes Alcohol/week: 3.0 standard drinks of alcohol Types: 3 Glasses of wine per week No family history on file. Current Outpatient Medications on File Prior to Visit Medication Sig Dispense Refill acyclovir (ZOVIRAX) 400 mg tablet Take 2 capsules by mouth. pantoprazole (PROTONIX) 40 mg EC tablet Take 1 tablet by mouth every morning before breakfast. Do not crush, chew, or split. acetaminophen (TYLENOL) 500 mg tablet Take 1,000 mg by mouth. No current facility-administered medications on file prior to visit. Hard Tissue Exam: Fractured teeth with amalgams that are showing initial signs of failure. Will watch for now and recommend treatment if progresses. NG recommended TMJ: TMJ Clicking: TMJ clicking WNL TMJ Pain: TMJ Pain WNL Oral cancer screening: Performed oral cancer screening with head, including face and mouth, neck & joint exam. Tissuesare within normal limits Perio: Pocket charting: Full mouth pocket charting was completed Radiographic horizontal bone loss and vertical bone loss Stage/grade: Healthy pockets on reduced periodontium Supragingival Calc: Localized light Subgingival Calc: Localized light Plaque: Localized light Bleeding/Inflammation: Localized light Stain: None Scaling: Hand scaled and ultrasonic used Ethiopian: Full mouth icelandic completed Irrigation: No irrigation recommended Varnish: Patient/Guardian declined fluoride Oral Hygiene: Good OHI given. Adjunctive recommendation were discussed including: [employer] Next Hygiene Visit: 6 month continuing care Treatment Plan: NG Orders Placed This Encounter Procedures 18 ZIRCONIA CROWN 19 ZIRCONIA CROWN 15 ZIRCONIA CROWN 14 ZIRCONIA CROWN 12 DO AMALGAM FILLING 13 DO AMALGAM FILLING 20 DO COMPOSITE FILLING 8 ML COMPOSITE FILLING 9 MDL COMPOSITE FILLING 10 ML COMPOSITE FILLING 2 ZIRCONIA CROWN 3 ZIRCONIA CROWN 30 ZIRCONIA CROWN 31 MOD AMALGAM FILLING 4 MOD COMPOSITE FILLING 5 DO COMPOSITE FILLING 2 ROOT CANAL POLYSOMNOGRAPHY TECH CBCT COMPREHENSIVE ORAL EVALUATION - NEW OR ESTABLISHED PATIENT BITEWINGS - FOUR RADIOGRAPHIC IMAGES SINGLE X-RAY ADDITIONAL X-RAY ADDITIONAL X-RAY ADDITIONAL X-RAY ADDITIONAL X-RAY ADDITIONAL X-RAY INTRAORAL PHOTO INTRAORAL PHOTO INTRAORAL PHOTO INTRAORAL PHOTO PROPHYLAXIS - ADULT ORAL HYGIENE INSTRUCTIONS OCCLUSAL GUARD - HARD APPLIANCE, FULL ARCH PERIO CONSULT documented in this encounter Plan of Treatment Upcoming Encounters Date Type Department Care Team (Late st Contact Info) Description 01/16/2025 10:00 AM MST Office Visit [facility] [address] [place] [address] Ulysses Ruiz DMD [address] [place] [address] documented as of this encounter Procedures Procedure Name Priority Date/Time Associated Diagnosis Comments POLYSOMNOGRAPHY TECH CBCT Routine 06/14/2024 10:00 AM MDT SINGLE X-RAY Routine 06/14/2024 10:00 AM MDT OCCLUSAL GUARD ? HARD [...] INTRAORAL PHOTO Routine 06/14/2024 10:00 AM MDT BITEWINGS - FOUR RADIOGRAPHIC IMAGES Routine 06/14/2024 10:00 AM MDT ADDITIONAL X-RAY Routine 06/14/2024 10:0 0 AM MDT ADDITIONAL X-RAY Routine 06/14/2024 10:0 0 AM MDT ADDITIONAL X-RAY Routine 06/14/2024 10:0 0 AM MDT ADDITIONAL X-RAY Routine 06/14/2024 10:0 0 AM MDT ADDITIONAL X-RAY Routine 06/14/2024 10:0 0 AM MDT COMPREHENSIVE ORAL EVALUATION - NEW OR ESTABLISHED PATIENT Routine 06/14/2024 10:00 AM MDT Encounter for dental examination and cleaning without abnormal findings 30 ZIRCONIA CROWN Routine 06/14/2024 12: 00 AM MDT 3 ZIRCONIA CROWN Routine 06/14/2024 12:0 0 AM MDT 2 ZIRCONIA CROWN Routine 06/14/2024 12:0 0 AM MDT 14 ZIRCONIA CROWN Routine 06/14/2024 12: 00 AM MDT 15 ZIRCONIA CROWN Routine 06/14/2024 12: 00 AM MDT 19 ZIRCONIA CROWN Routine 06/14/2024 12: 00 AM MDT 18 ZIRCONIA CROWN Routine 06/14/2024 12: 00 AM MDT 5 DO COMPOSITE FILLING Routine 12:00 AM MDT 4 MOD COMPOSITE FILLING Routine 06/14/20 12:00 AM MDT 10 ML COMPOSITE FILLING Routine 06/14/20 12:00 AM MDT 9 MDL COMPOSITE FILLING Routine 06/14/20 24 12:00 AM MDT 8 ML COMPOSITE FILLING Routine 4 12:00 AM MDT 20 DO COMPOSITE FILLING Routine 06/14/20 24 12:00 AM MDT 31 MOD AMALGAM FILLING Routine 4 12:00 AM MDT 13 DO AMALGAM FILLING Routine 06/14/2024 12:00 AM MDT 12 DO AMALGAM FILLING Routine 06/14/2024 12:00 AM MDT 2 ROOT CANAL Routine 06/14/2024 12:00 AM MDT documented in this encounter Visit Diagnoses Diagnosis Encounter for dental examination and cleaning without abnormal findings- Primary documented in this encounter
--- OUTSIDE RECORDS SUMMARY | 2024-08-31 20:22 | XMS_ITS | Clinical Summary ---
Author Organization [facility] Address [address] [place] [address] Phone Care Team Providers Care Clinical Biostatistics Director Name Role Phone Doc, Update Unavailable Unavailable Alexis SANTOS, Matti Unavailable [phone] Briana KOHLI - [facility], María Montemayor Primary Care Prov ider [phone] Reason for Visit and Chief Complaint [Patient Encounter] Problems Includes: Problems addressed during this encounter and other active Problems All Visits Onset Date Resolved Date Provider Condition S tatus Abdominal Pain 12/02/2023 Matti Espinoza PA-C Active Last Documented On 4 1:11PM ; [facility] Cirrhosis 10/14/2022 Kai Byrnes MD Active Last Documented On 2 10:02AM ; [facility] Hypertension Systemic 10/14/2022 Kai Byrnes MD Active Last Documented On 2 10:07AM ; [facility] Hyperlipidemia 07/29/2022 Kai Byrnes MD Acti ve Last Documented On 2 9:09PM ; [facility] Iron Deficiency Anemia 07/29/2022 Kai Byrnes MD Active Last Documented On 2 9:09PM ; [facility] Fatty Liver 07/29/2022 Kai Byrnes MD Active Last Documented On 2 9:09PM ; [facility] Obesity 07/29/2022 Kai Byrnes MD Active Last Documented On 2 9:09PM ; [facility] Nonspecific Abnormal Results of Function Studies Liver 07/16/2022 Kai Byrnes MD Active Last Documented On 2 11:03AM ; [facility] Diarrhea 09/27/2020 Jorge Friedman MD Act darrel Last Documented On 0 3:24PM ; [facility] 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 Jorge Friedman MD Active Last Documented On 0 9:51AM ; [facility] Plan of Treatment Pending Tests Order Diagnosis Results Due Ordering P rovider Lab URINE: 5-Hydroxyindo leacetic Acid (HIAA), Quant, 24-Hour 12/09/23 Matti Rivas Last Documented On 4 8:22PM ; [facility] Lab LAB: Tryptase 12/09/23 Matti Deleon-Helene Last Documented On 4 8:22PM ; [facility] Lab LAB: Vasoactive Intestinal Polypeptide (VIP), P lasma 12/09/23 Matti Espinoza PA-C Last Documented On 4 8:22PM ; [facility] Future Tests Order Diagnosis Results Due Ordering Pr ovider Follow Up OV - Follow-Up with VANI 3 Months with ÁNGEL Unspecified abdominal pain 03/03/24 Matti Espinoza PA-C Last Documented On 4 10:51AM ; [facility] Assessments Includes: Assessments from this encounter No Assessments Recorded Medical Equipment - Implanted Devices Includes: Current Devices No Medical Equipment Recorded Medications Includes: Medications discussed during this encounter and other current Medications Current Medications (continue as prescribed) Tylenol PM Extra Strength 500-25 MG Oral Tablet 2023 Provider: Diagnosis: Last Documented On 4 10:25AM By Vickie Johns ; [facility] Pantoprazole Sodium 40 MG Oral Packet 03/03/2024 Pro vider: Diagnosis: PO Last Documented On 4 10:25AM By Vickie Johns ; [facility] Acyclovir 400 MG Oral Tablet 03/03/2024 Provider: Diagnosis: PO. Last Documented On 4 10:26AM By Vickie Johns ; [facility] Hyoscyamine Sulfate 0.125 MG Sublingual Tablet Sublingual 12/02/2023 Provider: Matti Welch Diagnosis: Unspecified abdo jose pain 1 every 4 - 6 hours as needed Last Documented On 4 1:28PM By Matti Espinoza PA-C ; [facility] Medications Administered Includes: Administered Medications from this encounter No Administered Medications Recorded Results Includes: Results discussed during this encounter No Results Recorded For Specified Dates History of Present Illness Includes: History of Present Illness from this encounter No History of Present Illness Recorded Social History No Social History Recorded - Smoking Status Unknown Medical History Includes: Medical History addressed during [...] Last Documented On 4 10:31AM ; [facility] Encounters Encounter Provider Location Date Check-In Time Check-Out Time Diagnosis [Patient Encounter] Matti Espinoza PA-C 03/03/2024 7:41AM 11:59PM Insurance Includes: Active Insurance Policies Plan Name Member ID Group # Subscriber Relationship Effect darrel Dates 1 - [employer] Care Claim [id number] Suzanna zurita Clinical Notes Includes: Clinical Notes from this encounter No Clinical Notes Recorded
--- OUTSIDE RECORDS SUMMARY | 2024-08-31 20:22 | XMS_ITS | CCD ---
Author Organization [facility] Address [address] [facility] [place] [address] Care Team Providers Care Marine Electrician Apprentice Name Role Phone Unavailable Primary Care Provider [...] Given: Not Answered Alcohol Use Standard Drinks/Week Yes 3 (1 standard drink = 0.6 oz pure alcohol) Comments Unknown Sex and Gender Information [...] AM MST Office Visit [facility] [address] [place] [address] Ulysses Ruiz, DMD [address], [place] [id number] Procedures Procedure Name Priority Date/Time Associated Diagnosis [...] X-RAY Routine 06/14/2024 10:0 0 AM MDT DIRECTOR OF HOSPITALITY CBCT Routine 06/14/2024 10:00 AM MDT COMPREHENSIVE ORAL EVALUATION - NEW OR ESTABLISHED PATIENT Routine 06/14/2024 10:00 AM MDT Encounter for dental examination and cleaning without abnormal findings SINGLE X-RAY Routine 06/14/2024 10:00 AM MDT BITEWINGS - FOUR RADIOGRAPHIC IMAGES Routine 06/14/2024 10:00 AM MDT 2 ROOT CANAL Routine 06/14/2024 12:00 AM MDT 5 DO COMPOSITE FILLING Routine 4 12:00 AM MDT 4 MOD COMPOSITE FILLING [...]
--- OUTSIDE RECORDS SUMMARY | 2024-08-31 20:22 | XMS_ITS | Encounter Summary ---
Author Organization [facility] Address [address] [place] [address] Care Team Providers Care Senior Hardware Engineer Name Role Phone Unavailable Primary Care Provider Unavailabl e Prior Encounters Date Type Department Care Team Description 07/13/2024 10:00 AM MDT Office Visit [address] [address] Dez Gan, ROBBI 06/22/2024 10:00 AM MDT Office Visit [facility] [address] [address] Ulysses Ruiz DMD 06/14/2024 10:00 AM MDT Office Visit [address] [address] Ulysses Ruiz DMD Encounter for dental examination and cleaning without abnormal findings (Primary Dx) Last Filed Vital Signs Vital Sign Reading [...] 10:00 AM MST [facility] Visit [facility] [address] [address] Ulysses Ruiz, [facility] [address], [place] [id number] Procedures Procedure Name Priority Date/Time Associated Diagnosis [...] X-RAY Routine 06/14/2024 10:0 0 AM MDT POWDER GUARD CBCT Routine 06/14/2024 10:00 AM MDT COMPREHENSIVE [...] CROWN Routine 06/14/2024 12: 00 AM MDT Visit Diagnoses Diagnosis Start Date Encounter for dental examination and cleaning without abnormal findings 06/14/2024 Insurance [facility]
--- OUTSIDE RECORDS SUMMARY | 2024-08-31 20:22 | XMS_ITS ---
Care Plan - [facility] Created on: September 01, 2024 Kam Cruza Donna .0 : 1950 Sex: Female Author Organization [facility] Address [address] [place] [address] Phone Care Team Providers Care Applications Administrator Name Role Phone Doc, Update Unavailable Unavailable Matti Espinoza PA-C Unavailable [phone] Briana KOHLI - [facility], María Montemayor Primary Care Prov ider [phone]
--- OUTSIDE RECORDS SUMMARY | 2024-08-31 20:22 | XMS_ITS | Clinical Summary ---
Author Organization [facility] and [facility] Address [address] [place] [address] Care Team Providers Care Resource Agent Name Role Phone María Warren MD Primary Care Provider [phone] Allergies Active Allergy Reactions Criticality Noted Date Comments Amoxicillin Hives,Rash Low 03/26/199819971998-03-26, all over rash, avoid Aspirin GI bleeding 09/25/2021 Not sure if from the cancer or this Imatinib Adverse reaction Medium 10/27/2019 Edema; eyelid edema and generalized Nsaids (Non-Steroidal Anti-Inflammatory Drug) GI bleeding 09/25/2021 Not sure if from the cancer or this Medications Medication Sig Dispensed Refills Start Date End Date Status acetaminophen (TYLENOL) 500 mg tablet Take 1,000 mg by mouth every 8 (eight) hours if needed for mild pain. Active ibuprofen (AdviL) 200 mg tablet Take 1 tablet (200 mg total) by mouth. Active estradioL (ESTRACE) 0.01 % (0.1 mg/gram) vaginal creamIndications: Genitourinary syndrome of menopause 1 g/day intravaginally for 2 weeks, then 500 mg to 1 g one to three times per week 42.5 g 5 11/09/2023 Active pantoprazole (PROTONIX) 40 mg EC tablet Take 1 tablet by mouth every morning before breakfast. Do not crush, chew, or split. 90 tablet 2 04/19/2024 Active acyclovir (ZOVIRAX) 400 mg tabletIndications :HSV infection Take 1 tablet by mouth nightly. 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 Also discussed vaginal moisturizers and personal lubricants, see after visit summary History of diverticulitis 07/06/2023 Annual physical exam 03/02/2023 Last Assessment & Plan: Requesting prior records. -STI screening: would like today -cervical cancer screening: discussed routine screening stops age 65. Patient does have new partners and is interested in pap vs HPV testing. Will schedule follow- up for this. -menopause: no vaginal bleeding -labs per orders -colon cancer screening (45-75): Follows with GI. -breast cancer screening (40-74):mammo ordered. No symptoms. -DEXA: Has had in the past. Obtaining records. 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 Resolved Problems Problem Noted Date Diagnosed Date Resolved Date Unilateral primary osteoarthritis, right knee 10/01/20 21 10/02/2021 Obese 10/31/2019 03/02/2023 GI (gastrointestinal bleed) 02/21/2019 03/02/2023 Preop testing 10/02/2021 Encounters Date Type Department Care Team Description 07/26/2024 Orders Only [facility] [address] [place] [phone] María Warren MD Recurrent UTI (Primary Dx) 07/13/2024 Telephone [facility] [address] [place] [address] María Warren MD Appointment (Called pt to Sched AWV appt w [employer] [facility]. When pt calls PLEASE schedule w [employer] [facility];/) 06/26/2024 Refill [facility] [address] [place] [phone] María Warren MD HSV infection 06/02/2024 2:00 PM MDT Office Visit [facility] [address] [place] [phone] María Warren MD UTI (urinary tract infection) (Primary Dx); Dysuria; Gastrointestinal stromal tumor (GIST) of stomach ([facility]/HCC) 06/02/2024 Travel from Last 3 Months Immunizations Name Administration Dates Next Due Hep A, 2 Dose ? Adult (>= 19yrs) 04/15/2021,08/09/2020 Hepatitis B 04/15/2021,09/21/2020,08/09/2020 Influenza Split High Dose Pr eservative Free IM 08/04/2022,09/21/2020 Influenza, seasonal, injectable 09/29/2010 Influenza, seasonal, injecta ble, Preservative Free 09/26/2013 Moderna SARS-CoV-2 Booster 11/13/2021 Moderna SARS-CoV-2 Vaccination 01/22/2021,2020 Pfizer SARS-CoV-2 Vaccination (CALIX TOP) 022 Tdap 05/19/2012 Zoster 05/19/2012 Zoster Recombinant 02/18/2021,10/30/2020 Family History Medical History Relation Comments Asthma Father Cancer Father Breast cancer Maternal Grandmother Onset 80s Diabetes Mother Relation Status Comments Father Maternal Grandmother Mother Social History Tobacco Use Types Packs/Day Years Used Date Smoking Tobacco: Never Smokeless Tobacco: Never Alcohol Use Standard Drinks/Week Comments Yes 2 (1 standard drink = 0.6 oz pure alcohol) NO ALCOHOL WITHIN 72 HOURS PRIOR TO SURGERY [facility] Utilities Answer Date Recorded In the past 12 months has e [email or web address], gas, oil, or water [employer] threatened to shut off services in your home? No 06/02/2024 Humiliation, Afraid, Rape, and Kick questionnair e Answer Date Recorded Within the last year, have y ou been afraid of your partner or ex-partner? No 02/23/2023 Within the last year, have y ou been humiliated or emotionally abused in other ways by your partner or ex-partner? No Within the last year, have y ou been kicked, hit, slapped, or otherwise physically hurt by your partner or ex-partner? No 02/23/2023 Within the last year, have y ou been raped or forced to have any kind of sexual activity by your partner or ex-partner? No 02/23/2023 Social Connection and Isolat ion Panel [NHANES] Answer Date Recorded In a typical week, how many times do you talk on the phone with family, friends, or neighbors? More than three times a week 06/02/2024 How often do you get togethe r with friends or relatives? More than three times a week 06/02/2024 How often do you attend chur or catholic services? Patient declined 06/02/2024 Do you belong to any clubs o r organizations such as pentecostalism groups, unions, fraternal or athletic groups, or school groups? Yes 06/02/2024 How often do you attend meet ings of the clubs or organizations you belong to? More than 4 times per year 06/02/2024 Are you , , di vorced, , never , or living with a partner? Living with partner 06/02/2024 AUDIT-C Answer Date Recorded Q1: How often do you have a drink containing alc ohol? 2-3 times a week 06/02/2024 Q2: How many drinks containi ng alcohol do you have on a typical day when you are drinking? 1 or 2 06/02/2024 Q3: How often do you have si x or more drinks on one occasion? Never 06/02/2024 Overall Financial Resource Strain (CARDIA) Answe r Date Recorded How hard is it for you to pa y for the very basics like food, housing, medical care, and heating? Not hard at all 06/02/2024 [facility] [place] [facility] - Occupational Stress Questionnaire Answer Date Recorded Do you feel stress - tense, restless, nervous, or anxious, or unable to sleep at night because your mind is troubled all the time - these days? Not at all 06/02/2024 Exercise Vital Sign Answer Date Recorde d On average, how many days pe r week do you engage in moderate to strenuous exercise (like a brisk walk)? 2 days 06/02/2024 On average, how many minutes do you engage in exercise at this level? 20 min 06/02/2024 Hunger Vital Sign Answer Date Recorded Within the past 12 months, y ou worried that your food would run out before you got the money to buy more. Never true 06/02/20 24 Within the past 12 months, t he food you bought just didn't last and you didn't have money to get more. Never true 06/02/2024 PRAPARE - Transportation Answer Date Re corded In the past 12 months, has l ack of transportation kept you from medical appointments or from getting medications? No 05/23 In the past 12 months, has l ack of transportation kept you from meetings, work, or from getting things needed for daily living? No 06/02/2024 Housing Stability Vital Sign Answer [place] e Recorded In the last 12 months, was t here a time when you were not able to pay the mortgage or rent on time? No 02/23/2023 In the last 12 months, how many places have you lived? 2 02/23/2023 In the last 12 months, was t here a time when you did not have a steady place to sleep or slept in a long term (including now)? No 02/23/2023 Housing Stability Vital Sign Answer [place] e Recorded In the last 12 months, was t here a time when you were not able to pay the mortgage or rent on time? No 06/02/2024 In the past 12 months, how m any times have you moved where you were living? 0 06/02/2024 At any time in the past 12 m [facility], were you homeless or living in a long term (including now)? No 06/02/2024 Sex and Gender Information Value Date Recorded Sex Assigned at Female 03/21/2024 8:29 AM KYM Gender Identity Female 11/04/2019 6:06 PM MST Sexual Orientation Straight 11/04/2019 6: 06 PM MST Job Start Date Occupation Industry Not on file Not on file Not on file Last Filed Vital Signs Vital Sign Reading Time Taken Comments Blood Pressure 114/70 06/02/2024 1:58 PM KYM Pulse 76 06/02/2024 1:58 PM MDT Temperature 36.7 ??C (98 ??F) 06/02/2024 1:58 PM MDT Respiratory Rate 18 07/06/2023 10:2 0 AM MDT Oxygen Saturation 94% 06/02/2024 1:58 PM MDT Inhaled Oxygen Concentration - - Weight 78.4 kg (172 lb 12.8 oz) 023 12:51 PM MST Height 160 cm (5' 2.99) 11/09/2023 12: 51 PM MST Body Mass Index 30.62 11/09/2023 12:51 PM MST Plan of Treatment Upcoming Encounters Date Type Department Care Team (Late st Contact Info) Description 09/19/2024 1:00 PM MDT Office Visit [facility] [address] [place] [phone] María Warren MD [address] [place] [phone] Health Maintenance Due Date Last Done Comments CT Colonography 1950 Cologuard 1950 FIT/FOBT 1950 Sigmoidoscopy 1950 RSV Age 60+ and Patients (1 - 1-dose 60+ series) 2010 Pneumococcal Vaccine: 65+ Years (1 of 1 - PCV) 2015 DTaP,Tdap,and Td Vaccines (2 - Td or Tdap) 05/19/2022 05/19/2012 Advance Care Plan Codes Not Dropped This Year 11/23/2023 Influenza Vaccine (#1) 2024 , 08/04/2022, 09/21/2020, Additional history exists COVID-19 Vaccine ( season) 2024 04/28/2022, 11/13/2021, 01/22/2021, Additional history exists Annual Wellness Exam 11/09/2024 11/09/2023 Mammogram 03/03/2025 03/03/2023, 06/23, 04/13/2015, Additional history exists Colonoscopy 07/09/2032 07/09/2022, 07/09/2022 Colorectal Cancer Screening 07/09/2032 Zoster Vaccines Completed 02/18/2021, 12/0 06/2020, 05/19/2012 Hepatitis A Vaccines Aged Out 04/15/2021, 08/09/20 20 No longer eligible based on patient's age to complete this topic Hepatitis B Vaccines Completed 04/15/2021, 09/21/2020, 08/09/2020 HIB Vaccines Aged Out No longer eligi ble based on patient's age to complete this topic IPV Vaccines Aged Out No longer eligi ble based on patient's age to complete this topic Meningococcal Vaccine Aged Out No ibeth yamil eligible based on patient's age to complete this topic Medical Devices Implanted Type Area Pattern Duplicator Device Identifier Shelf Expiration Date Model / Serial / Lot Tibial Component 5536-B-300 - [id number] Implanted:Qty: 1 on 10/01/2021 by Benedict Go MD at [facility] Implant - Other Right: Knee [employer]IL[employer] [id number] 06/14/2026 5536-B-30 0 / / [id number] Femur #3 Right Pa 5517-F-302 - [id number] Implanted:Qty: 1 on 10/01/2021 by Benedict Go MD at [facility] Implant - Other Right: Knee [employer] [id number] 07/16/2024 5517-F-30 2 / / [id number] Patella Asymmetric Sz29 9 - [id number] Implanted:Qty: 1 on 10/01/2021 by Benedict Go MD at [facility] Implant - Other Right: Knee [employer] [id number] 07/03/2026 5552-L-29 9 / / [id number] Insert Sz3x10 2745-L-744-E - [id number] Implanted:Qty: 1 on 10/01/2021 by Benedict Go MD at [facility] Implant - Other Right: Knee [employer]STRY [employer]RIEN[employer] [id number] 03/17/2026 5531-G-31 0-E / / [id number] Procedures Procedure Name Priority Date/Time Associated Diagnosis Comments URINE CULTURE Routine 06/02/2024 2:42 PM MDT Dysuria MAMMOGRAM SCREENING MANUEL BILATERAL Routine 03/03/2023 7:39 AM MDT Screening due HM COLONOSCOPY Routine 07/09/2022 from Last 3 Months or Most Recently Relevant to Health Maintenance Results * (ABNORMAL) Urine Culture (06/02/2024 2:42 PM MDT) Urine Culture ESCHERICHIA COLI(A) 06/04/2024 7:43 AM MDT [facility] Urine Culture 1,000 - 9,000 CFU/mL Mixed Bacteria(A) 06/04/2024 7:43 AM NHT [facility] Comment:Growth indicative of mixed bacterial microbiota; possible contamination. ??Suggest appropriate recollection with timely delivery to laboratory if clinically indicated. Urine Urine specimen obtained by clean catch procedure / Unknown Non-blood Collection / Unknown 06/02/2024 2:42 PM MDT 06/02/2024 2:42 PM MDT Narrative [facility] - 06/04/2024 7:43 AM MDT The isolation of more than 100,000 CFU/mL of a urinary pathogen is generally considered significant; however, the diagnosis of a UTI requires both significant bacteriuria and symptoms consistent with infection of the urinary tract, such as dysuria or urgency. ??In the absence of symptoms, positive urine cultures likely represent asymptomatic bacteriuria. ??Cultures are not recommended to screen for asymptomatic bacteriuria, with the exception of women who are and people undergoing urological procedures. A mixed culture in an uncomplicated outpatient population likely indicates contamination. ??Union counts of <100,000 CFU/mL in high-quality voided specimens in the presence of dysuria and symptoms of UTI may be significant. ??In poorly collected specimens, contamination by organisms usually present in the urethra or periurethral surfaces can result in proliferation of these organisms leading to false positive culture results. Organism Antibiotic Method Susceptibility Escherichia coli Ampicillin <=4: Susceptible Escherichia coli Ampicillin + Sulbactam 2/1: Susceptible Escherichia coli Cefazolin <=1: Susceptible Escherichia coli Ceftriaxone <=1: Susceptible Escherichia coli Levofloxacin <=0.5: Susceptible Escherichia coli Meropenem <=0.5: Susceptible Escherichia coli Nitrofurantoin <=16: Susceptible Escherichia coli Piperacillin + Tazobactam <=2/4: Susceptible Escherichia coli Tetracycline <=2: Susceptible Escherichia coli Trimethoprim + Sulfamethoxazole <=0.5/9.5: Susceptible Comment: ADDITIONAL INFORMATION: 1.) Ampicillin result can be used to predict results for amoxicillin. 2.) For treatment of uncomplicated UTIs due to E.coli, K.pneumoniae and P.mirabilis, the cefazolin breakpoint is used to predict results for oral agents cefaclor, cefdinir, cefpodoxime, cefprozil, cefuroxime, cephalexin and loracarbef. 3.) ??Organisms that are susceptible to tetracycline are also considered susceptible to doxycycline and minocycline. ??However, some organisms that are intermediate or resistant to tetracycline may be susceptible to doxycycline, minocycline or both. 4.) ??Enterobacter cloacae, Klebsiella aerogenes and Citrobacter freundii may develop resistance to 3rd generation cephalosporins when there is a high burden of infection or with prolonged therapy even if shown as susceptible. 5.) ??Pseudomonas aeruginosa may develop resistance during prolonged therapy with all antimicrobial agents. ??Testing of repeat isolates may be warranted. 6.) An Infectious Disease consult is recommended for enteric Gram-Negative Rods (members of the Enterobacterales) with resistance to 3rd-generation cephalosporins and/or carbapenem resistance. 7.) For P. aeruginosa and enteric Gram-Negative Rods (members of the Enterobacterales), Aminoglycosides should not be used as monotherapy for systemic infections. ??Consultation with Infectious Disease is recommended. María Warren MD LAB MICROBIOLOGY - [facility] ORDERABLES Performing Organization Address City/State/[facility] Co de Phone Number [facility] [address] [place] [address], * Mammogram screening manuel bilateral (03/03/2023 7:39 AM MDT) Anatomical Region Laterality Modality Breast, Non-Proc Bilateral Mammography Narrative 03/03/2023 8:40 AM MDT EXAM: Digital Mammogram screening manuel bilateral HISTORY: Screening Mammogram. Patient is 72 y.o. Family medical history includes breast cancer in maternal grandmother (comments: Onset 80s). No relevant hormone history has been documented for this patient. No relevant surgical history has been documented for this patient. No relevant medical history has been documented for this patient. COMPARISON STUDIES: 07/07/2019 Mammogram screening tomosynthesis bilateral TECHNIQUE: CC and MLO views were obtained. Synthesized digital and tomosynthesis techniques were utilized. BREAST COMPOSITION: Density B: The breasts have scattered areas of fibroglandular density. FINDINGS: No suspicious calcifications, masses, or areas of architectural distortion are identified. Computer-aided detection was utilized by the radiologist in the interpretation of this examination. ?? IMPRESSION: Negative mammogram. BI-RADS CATEGORY: Overall: 1 - Negative RECOMMENDATION: ? - Routine Screening Mammogram in 1 Yr. [facility] will send a result letter to the patient. ? Negative mammography should not preclude additional workup of a clinically suspicious finding. ? The patient's information is entered into a reminder system with a target due date for their next mammogram. María Warren MD IMG BI PROCEDURES * HM Colonoscopy (07/09/2022) Anatomical Region Laterality Modality Other 07/09/2022 Historical Provider MD JAMSHID Lyon from Last 3 Months or Most Recently Relevant to Health Maintenance Advance Directives For more information, please contact: [phone] * Full Code (Latest Code Status on File) Date Activated Date Inactivated Comments 10/01/2021 8:18 AM 10/02/2021 2:46 PM * Full Code Date Activated Date Inactivated Comments 11/04/2019 9:57 AM 11/07/2019 12:58 PM Healthcare Agents on File Name Relationship Healthcare Agent Relationship Communication Forest Martinez Daughter First Fiordalizaat e Health Care Agent [email or web address] Resource Agent Relationship Specialty Start Date End Date María Warren MD [facility], [place] [id number] PCP - General Family Medicine 03/02/23
--- OUTSIDE RECORDS SUMMARY | 2024-08-31 20:22 | XMS_ITS | Clinical Summary ---
Author Organization [facility] Address [address] [place] [address] Phone Care Team Providers Care Technical Support Professional Name Role Phone Doc, Update Unavailable Unavailable Alexis SANTOS, Matti Unavailable [phone] Briana KOHLI - [facility], María Montemayor Primary Care Prov ider [phone] Reason for Visit and Chief Complaint The Chief Complaint is: Follow up diarrhea, abdominal pain Problems Includes: Problems addressed during this encounter and other active Problems Current Visit Onset Date Resolved Date Provider Conditio n Status Abdominal Pain 12/02/2023 Matti Espinoza PA-C Active Last Documented On 4 1:11PM ; [facility] Cirrhosis 10/14/2022 Kai Byrnes MD Active Last Documented On 2 10:02AM ; [facility] Fatty Liver 07/29/2022 Kai Byrnes MD Active Last Documented On 2 9:09PM ; [facility] Past Visits Onset Date Resolved Date Provider Condition Status Hypertension Systemic 10/14/2022 Kai Byrnes MD Active Last Documented On 2 10:07AM ; [facility] Hyperlipidemia 07/29/2022 Kai Byrnes MD Acti ve Last Documented On 2 9:09PM ; 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 Abdominal pain [...] urine 5-HIAA, serum VIP, and tryptase. ?? Will refer to Allergy/immunology for evaluation of food allergies. ?? Reportedly had recent CT for surveillance of prior GIST, and will request this report for review to ensure no lesion/mass. ?? Continue hyoscyamine sublingual as needed. Can try taking 2 tablets. Try taking Metamucil daily instead of as needed keep stools regular. - Last Documented On 03/03/2024 12:11PM ; [facility] Pending Tests Order Diagnosis Results Due Ordering Noe serrano Lab URINE: 5-Hydroxyindo leacetic Acid (HIAA), Quant, 24-Hour 12/09/23 Matti Rivas Last Documented On 4 8:22PM ; [facility] Lab LAB: Tryptase 12/09/23 Matti Welch Last Documented On 4 8:22PM ; [facility] Lab LAB: Vasoactive Intestinal Polypeptide (VIP), Noe lasma 12/09/23 Matti Espinoza PA-C Last Documented On 4 8:22PM ; [facility] 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 Unspecified abdo jose pain Note: to [facility] allergy/immunology Last Documented On 4 12:49PM ; [facility] Future Tests Order Diagnosis Results Due Ordering Pr ovider Follow Up OV - Follow-Up with VANI 3 Months with ÁNGEL Unspecified abdominal pain 03/03/24 Matti Espinoza PA-C Last Documented On 4 10:51AM ; [facility] Assessments Includes: Assessments from this encounter Findings - Fatty liver - Last Documented On 03/03/2024 12:11PM ; [facility] - Cirrhosis - Last Documented On 03/03/2024 12:11PM ; [facility] - Abdominal pain - Last Documented On 03/03/2024 12:11PM ; [facility] Medical Equipment - Implanted Devices Includes: Current Devices No Medical Equipment Recorded Medications Includes: Medications discussed during this encounter and other current Medications Current Medications (continue as prescribed) Tylenol PM Extra Strength 500-25 MG Oral Tablet 2023 Provider: Diagnosis: Last Documented On 4 10:25AM By Vickie Johns ; [facility] Pantoprazole Sodium 40 MG Oral Packet 03/03/2024 Pro vider: Diagnosis: PO Last Documented On 4 10:25AM By Vickie Johns ; [facility] Acyclovir 400 MG Oral Tablet 03/03/2024 Provider: Diagnosis: PO. Last Documented On 4 10:26AM By Vickie Johns ; [facility] Hyoscyamine Sulfate 0.125 MG Sublingual Tablet Sublingual 12/02/2023 Provider: Matti Welch Diagnosis: Unspecified abdo jose pain 1 every 4 - 6 hours as needed Last Documented On 4 1:28PM By Matti Espinoza PA-C ; [facility] Medications Administered Includes: Administered Medications from this encounter No Administered Medications Recorded Vital Signs Includes: Vital Signs from this encounter Vital Name 03/03/2024 10:27A Blood Pressure Sitting L 123/71 Pulse Rate-Sitting (bpm) 62 Height (in) 64 Weight (lb) 176 Body Mass Index 30.2 Body Surface Area 1.9 Last Documented: On 03/03/2024 10:31A M ; [facility] Results Includes: Results discussed during this encounter No Results Recorded For Specified Dates History of Present Illness Includes: History of Present Illness from this encounter RODOLFO Cruz is a 73 year old female. - Allergy list reviewed - Medication reconciliation performed - Medication list reviewed This is a 73 year old female with history of GIST s/p neoadjuvant chemotherapy, s/p partial gastrectomy, steatotic liver disease with concern for cirrhosis presenting for follow up. Has seen my colleagues Dr Byrnes and Joceline Temple PA-C for management of liver disease. Today's visit is mainly focused on chronic abdominal symptoms. Reports intermittent acute episodes of abdominal pain, N/V, and diarrhea. Occurs suddenly, without warning. Feels flushed during these episodes, with palmar erythema and itching. Unclear triggers, and does not occur with eating, or with bowel movements. Takes pepto-bismol with mild relief. Hyoscyamine helps some with cramping. Lasts a few hours, then slowly resolves. Next day, feels fatigued but no more pain or N/V/D. By the next day, she feels back to her normal self. These episodes typically occur 4-5 times a year, but occurred monthly the last 2 months. Never went to the ER during these episodes for evaluation. At baseline, she feels relatively well. No pain. Has some early satiety following her partial gastrectomy, but no vomiting. GERD well controlled on PPI therapy. No GI bleeding. Does note some regular bowel movements with alternating constipation and diarrhea. Takes Metamucil as needed which helps, but does not take this daily. Lost 40 pounds intentionally this past year, with intermittent fasting. Most recent labs 11/2023 unremarkable without anemia, and only mild thrombocytopenia. LFTs normal. Reportedly had CT done recently, as per her oncologist. EGD/colonoscopy 06/2022 unremarkable with biopsies negative for H pylori, celiac disease, and colitis. No ETOH misuse or illicit drug use. Denies anxiety or history of panic attacks. Social History Description Last Updated Alcoholic drinks per drinking day 01 day sometimes 03/03/2024 Last Documented On 4 12:11PM ; [facility] Not a current smokeless tobacco user 09/2024 Last Documented On 4 12:11PM ; [facility] Not using drugs 03/03/2024 Last Documented On 4 12:11PM ; [facility] Smoking an unspecified numbe r of cigarettes per day Number of cigarettes per day 03/03/2024 Last Documented On 4 12:11PM ; [facility] Using marijuana Once per week THC 2023 Last Documented On 4 12:11PM ; [facility] Caffeine use 12 oz per day 03/03/2024 Last Documented On 4 12:11PM ; [facility] Current smoker 03/03/2024 Last Documented On 4 12:11PM ; [facility] Smoking Status Unknown Procedures and Surgical History Surgical History Last Updated History of abdominal / peritoneal surger y 03/03/2024 Last Documented On 4 12:11PM ; [facility] History of eye surgery 03/03/2024 Last Documented On 4 12:11PM ; [facility] History of knee surgery 03/03/2024 Last Documented On 4 12:11PM ; [facility] Medical History Includes: Medical History addressed during this encounter Description Last Updated Complete colonoscopy 07/09/2022 EGD 07/09 ~Fibroscan 10-14-2023 03/03/2024 Last Documented On 4 12:11PM ; [facility] History of arthritis 03/03/2024 Last Documented On 4 12:11PM ; [facility] 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 Last Documented On 4 12:11PM ; [facility] Family History Includes: Family History addressed during this encounter Description Last Updated Family history of No Family History of B reast Cancer 03/03/2024 Last Documented On 4 12:11PM ; [facility] Family history of No Family History of C eliac Disease 03/03/2024 Last Documented On 4 12:11PM ; [facility] Family history of No Family History of C olon Polyps 03/03/2024 Last Documented On 4 12:11PM ; [facility] Family history of No Family History of C olorectal Cancer 03/03/2024 Last Documented On 4 12:11PM ; [facility] Family history of No Family History of Esophageal Cancer/Duenas's Esophagus 03/03/2024 Last Documented On 4 12:11PM ; [facility] Family history of No Family History of G astric Cancer 03/03/2024 Last Documented On 4 12:11PM ; [facility] Family history of No Family History of P ancreatic Cancer 03/03/2024 Last Documented On 4 12:11PM ; [facility] Family history of No Family History of U lcerative Colitis 03/03/2024 Last Documented On 4 12:11PM ; [facility] Family history of No Family History of U terine/Cervical Cancer 03/03/2024 Last Documented On 4 12:11PM ; [facility] No known Family History of Breast Cancer 03/03/2024 Last Documented On 4 12:11PM ; [facility] No known Family History of Celiac Diseas e 03/03/2024 Last Documented On 4 12:11PM ; [facility] No known Family History of Colon Polyps 03/03/2024 Last Documented On 4 12:11PM ; [facility] No known Family History of Colorectal Ca ncer 03/03/2024 Last Documented On 4 12:11PM ; [facility] No known Family History of Crohn's Disea se 03/03/2024 Last Documented On 4 12:11PM ; [facility] No known Family History of Esophageal Ca ncer/Duenas's Esophagus 03/03/2024 Last Documented On 4 12:11PM ; [facility] No known Family History of Gastric Cance r 03/03/2024 Last Documented On 4 12:11PM ; [facility] No known Family History of Pancreatic Ca ncer 03/03/2024 Last Documented On 4 12:11PM ; [facility] No known Family History of Ulcerative Co litis 03/03/2024 Last Documented On 4 12:11PM ; [facility] No known Family History of Uterine/Cervi yolanda Cancer 03/03/2024 Last Documented On 4 12:11PM ; [facility] Review of Systems Includes: Review of Systems [...] Last Documented On 4 10:31AM ; [facility] Encounters Encounter Provider Location Date Check-In Time Check-Out Time Diagnosis Office Visit PA- 20 Min Matti Espinoza PA-C [facility] 03/03/20 24 10:17AM 12:59PM Fatty Liver,Cirrhos is,Abdominal Pain Insurance Includes: Active Insurance Policies Plan Name Member ID Group # Subscriber Relationship Effect darrel Dates 1 - [employer] Claim [id number] Suzanna Cruz Gabino [facility] Clinical Notes Includes: Clinical Notes from this encounter * Progress note Date Encounter Last Documented by 03/03/2024 Office Visit PA- 20 Min Last doc umented on 03/03/2024; 12:11 PM, Matti Espinoza PA-C; [facility] Active Problems & Conditions - Abdominal Pain - Cirrhosis - Diarrhea - Fatty Liver - Hyperlipidemia - Hypertension Systemic - Iron Deficiency Anemia - Neoplasm Gastrointestinal Tract Stromal - Nonspecific Abnormal Results of Function Studies Liver - Obesity Chief Complaint The Chief Complaint is: Follow up diarrhea, abdominal pain. History of Present Illness Suzanna Cruz is a 73 year old female. - Allergy list reviewed - Medication reconciliation performed - Medication list reviewed This is a 73 year old female with history of GIST s/p neoadjuvant chemotherapy, s/p partial gastrectomy, steatotic liver disease with concern for cirrhosis presenting for follow up. Has seen my colleagues Dr Byrnes and Joceline Temple PA-C for management of liver disease. Today's visit is mainly focused on chronic abdominal symptoms. Reports intermittent acute episodes of abdominal pain, N/V, and diarrhea. Occurs suddenly, without warning. Feels flushed during these episodes, with palmar erythema and itching. Unclear triggers, and does not occur with eating, or with bowel movements. Takes pepto-bismol with mild relief. Hyoscyamine helps some with cramping. Lasts a few hours, then slowly resolves. Next day, feels fatigued but no more pain or N/V/D. By the next day, she feels back to her normal self. These episodes typically occur 4-5 times a year, but occurred monthly the last 2 months. Never went to the ER during these episodes for evaluation. At baseline, she feels relatively well. No pain. Has some early satiety following her partial gastrectomy, but no vomiting. GERD well controlled on PPI therapy. No GI bleeding. Does note some regular bowel movements with alternating constipation and diarrhea. Takes Metamucil as needed which helps, but does not take this daily. Lost 40 pounds intentionally this past year, with intermittent fasting. Most recent labs 11/2023 unremarkable without anemia, and only mild thrombocytopenia. LFTs normal. Reportedly had CT done recently, as per her oncologist. EGD/colonoscopy 06/2022 unremarkable with biopsies negative for H pylori, celiac disease, and colitis. No ETOH misuse or illicit drug use. Denies anxiety or history of panic attacks. Allergies - Amoxicillin Current Medication - Acyclovir 400 MG Oral Tablet 1 once a day PO., 0 days, 0 refills - Hyoscyamine Sulfate 0.125 MG Sublingual Tablet Sublingual 1 every 4 - 6 hours as needed, 30 days, 1 refills - Pantoprazole Sodium 40 MG Oral Packet 1 once a day PO, 0 days, 0 refills - Tylenol PM Extra Strength 500-25 MG Oral Tablet 0 days, 0 refills Past Medical/Surgical History Diagnoses: Arthritis. Cancer GIST Procedural: - Complete colonoscopy 07/09/2022 EGD 07/09/2022 Fibroscan 10-14-2023 Surgical: - Eye surgery - Abdominal / peritoneal surgery - Knee surgery Social History Caffeine use: Caffeine use 12 oz per day. Tobacco use: Current smoker. Smoking an unspecified number of cigarettes per day Number of cigarettes per day. Not a current smokeless tobacco user. Alcohol: Alcoholic drinks per drinking day 01 day sometimes. Drug Use: Not using drugs. Using marijuana Once per week THC. Family History No Family History of Uterine/Cervical Cancer No Family History of Breast Cancer No Family History of Celiac Disease No Family History of Gastric Cancer No Family History of Esophageal Cancer/Duenas's Esophagus No Family History of Pancreatic Cancer No Family History of Ulcerative Colitis No Family History of Colorectal Cancer No Family History of Colon Polyps No known: Family History of Uterine/Cervical Cancer Family History of Breast Cancer Family History of Celiac Disease Family History of Gastric Cancer Family History of Esophageal Cancer/Duenas's Esophagus Family History of Pancreatic Cancer Family History of Ulcerative Colitis Family History of Colorectal Cancer Family History of Colon Polyps Family History of Crohn's Disease Physical Findings - Vitals taken 03/03/2024 10:27 am BP-Sitting L 123/71 mmHg Pulse Rate-Sitting 62 bpm Height 64 in Weight 176 lbs Body Mass Index 30.2 kg/m2 Body Surface Area 1.9 m2 PHYSICAL EXAMINATION: CONSTITUTIONAL: Well-developed, well nourished, in no acute distress. PSYCH: normal affect SKIN: No rashes. No facial spider angiomas, no jaundice EYES: EOMI, anicteric RESPIRATORY: appropriate respiratory effort GASTROINTESTINAL: Abdomen appears non-distended. Nontender. MUSCULOSKELETAL: Range of motion in upper extremities appears normal NEUROLOGIC: Alert and oriented x 3, No abnormalities of speech. Previous Tests 11/24/2023 labs- WBC 6.0, hemoglobin 16.2, MCV 86.5, platelets 149, AST 34, ALT 25, alk-phos 50, total bilirubin 0.8, albumin 4.4, ferritin 132, iron saturation 47% 10/14/2023 FibroScan- LSM 10.3kPa, CAP 251 08/24/2023: Cirrhotic liver, no ascites. 08/04/2023 labs: MELD 7 Hemoglobin 16.4, MCV 86, platelet 145 Sodium 141, potassium 5, creatinine 0.6, albumin 4.6, total bili 0.9, alk-phos 44, AST 30, ALT 27 INR 1.05 03/02/2023: Sodium 140, creatinine 0.5, albumin 4.6, total bili 0.8, AST 32, ALT 30 AFP 3.4 Hemoglobin 16.5, MCV 84, platelet 170 Hep C antibody negative FibroScan 10/01/22: F3-F4 fibrosis (early cirrhosis; 13.8 kPa), S3 steatosis (316 dB/m), adequate/fair (IQR 20%) 07/21/22: Sodium 140, creatinine 0.7 AST 95, ALT 125, total bilirubin 0.9, alkaline phosphatase 81, albumin 4.3 WBC 5.4, hemoglobin 14.9, platelets 147, INR 1.17 HB core total negative PANCHO negative, ASMA negative, AMA negative, IgG 760, IgM 213 A1AT 168, celiac panel negative, TSH 0.939 EGD 07/09/22: - 3 cm hiatal hernia - normal mucosa throughout the esophagus, biopsies were unremarkable - mild Schatzki ring s/p balloon dilation to 20 mm - evidence of a partial gastrectomy was found in the stomach - mild gastric antral erythema, biopsies show mild chronic gastritis without H pylori or intestinal metaplasia - normal duodenum, biopsies were unremarkable Colonoscopy 07/09/22: - normal ileum, biopsies were normal - normal colonic mucosa, biopsies were normal - two 2-3 mm hyperplastic sigmoid polyps - left-sided diverticulosis with peridiverticular erythema, biopsies were normal 06/02/22: Sodium 140, creatinine 0.7 AST 152, ALT 156, total bilirubin 1.0, alkaline phosphatase 78, albumin 4.1 WBC 4.8, hemoglobin 14.5, platelets 130 Iron 114, ferritin 12.6, iron saturation 21% CT abdomen with contrast 03/27/21: -no evidence of recurrent GIST -Postoperative changes from previous partial gastrectomy -Small stable periportal and precaval nodes. 03/25/21: CMP notable for glucose of 188, AST 172, ALT 206, otherwise normal CBC WNL 09/2020 EGD/EUS: EGD showed gastritis, otherwise normal. Biopsy of the duodenum and stomach were unremarkable. EUS showed no liver abnormalities. Gallbladder stones. CBD sludge. Hyperechoic foci in the pancreas. 07/11/20: AST 179, ALT 247, total bilirubin 1.0, alkaline phosphatase 96, albumin 4.3 PANCHO negative, ASMA negative, normal serum protein electrophoresis, including gamma globulin fraction 0.8, except small monoclonal IgG kappa M spike (0.2) HAV total negative, HBsAg negative, HBsAb negative, HCV negative ferritin 29.2 INR 1.07 06/27/20: creatinine 0.6 AST 204, ALT 254, total bilirubin 1.0, alkaline phosphatase 92, albumin 4.2 normal CBC, platelet 166 03/23/20: sodium 139, potassium 4.4, creatinine 0.6 AST 85, ALT 131, total bilirubin 0.6, alkaline phosphatase 79, albumin 3.9 normal CBC, platelet 228 10/14/19:AST 111, ALT 203 10/04/19: AST 103, ALT 177 08/08/19: AST 25, ALT 35 Assessment - Fatty liver - Cirrhosis - Abdominal pain Plan StartCited - Unspecified abdominal pain Lab: URINE: 5-Hydroxyindoleacetic Acid (HIAA), Quant, 24-Hour - CPT: 82104 Lab: LAB: Tryptase - CPT: 60494 Lab: LAB: Vasoactive Intestinal Polypeptide (VIP), Plasma - CPT: 06732 Follow Up OV/Follow-Up with VANI: 3 Months with PA 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 Abdominal pain ?? Acute, episodic abdominal [...] urine 5-HIAA, serum VIP, and tryptase. ?? Will refer to Allergy/immunology for evaluation of food allergies. ?? Reportedly had recent CT for surveillance of prior GIST, and will request this report for review to ensure no lesion/mass. ?? Continue hyoscyamine sublingual as needed. Can try taking 2 tablets. Try taking Metamucil daily instead of as needed keep stools regular. Care Team - Matti Espinoza PA-C - Gastroenterology - María Warren MD - [facility] - Primary Care
--- OUTSIDE RECORDS SUMMARY | 2024-08-31 20:22 | XMS_ITS | Encounter Summary ---
Author Organization [facility] Address [address] [place] [address] Care Team Providers Care Facilities Painter Name Role Phone Unavailable Primary Care Provider Unavailabl e Encounter Details Date Type Department Care Team (Late st Contact Info) Description 07/13/2024 10:00 AM MDT Office Visit [facility] [address] [place] [address] Dez Gan DDS [address] [facility] [address] [place], [place] [id number] Social History Tobacco Use Types Packs/Day Years [...] Miscellaneous Notes * Dental Procedure Details - Dez Gan DDS - 07/13/2024 10:00 AM MDT Perio Consultation Note Patient referred for periodontal evaluation and gingival recession. Medical History: There have been no changes since patient's last visit Patient chief complaint: Gum recession Intra-oral screening is WNL All findings, treatment options, risks and benefits of treatment, as well as alternative treatment and risk of NO treatment were discussed with the patient. The patient was given an opportunity to read the periodontal disease/Implant booklet, to review the above treatment plan and ask questions from the doctor and the water treatment specialist. The patient also understands that all periodontal maintenance is to be done at the referring general dentists office and it is imperative for successful treatment. {Disc Perio Disease: , Discussed link between periodontal disease and systemic diseases with patient., Discussed role of smoking in etiology of periodontal disease and the effects of smoking on treatment outcome. Pocket Charting: Spot probing completed and noted. Radiographic studies shows generalized moderate horizontal bone loss with no vertical bone loss. Perio Diagnosis: gingival recession Patient has light plaque and calculus build up. Patients oral hygiene is Good. Prognosis: Good - All Teeth All remaining teeth have a Good prognosis. Treatment plan: Tissue graft. Treatment plan area: 24, 25, 28, and 29 3 mm of recession and 0 mm of attached tissue noted on #24, 25, 28, 29. I recommended FGG on #24, 25 and CTG #28, 29 Orders Placed This Encounter Procedures 24 FREE SOFT TISSUE GRAFT PROCEDUREFIRST TOOTH, IMPLANT OR EDENTULOUS TOOTH POSITION IN GRAFT 25 FREE SOFT TISSUE GRAFT PROCEDUREEACH ADDITIONAL CONTIGUOUS SITE 24 (PERIO) BIOLOGIC MATERIAL TO AID IN SOFT AND OSSEOUS TISSUE REGENERATION SURGICAL STENT 28 AUTOGENOUS CONNECTIVE TISSUE GRAFT PROCEDURE FIRST 29 AUTOGENOUS CONNECTIVE TISSUE GRAFT PROCEDURE EACH ADDITIONAL SITE 28 (PERIO) BIOLOGIC MATERIAL TO AID IN SOFT AND OSSEOUS TISSUE REGENERATION documented in this encounter Plan of Treatment Upcoming Encounters Date Type Department Care Team (Late st Contact Info) Description 01/16/2025 10:00 AM [facility] Office Visit [facility] [address] [place] [address] Ulysses Ruiz, MAYRA [address], [place] [id number] Scheduled Orders Name Type Priority Associated Diagnoses Order Schedule 24 24 FREE SOFT TISSUE GRAFT PROCEDUREFIRST TOOTH, IMPLANT OR EDENTULOUS TOOTH POSITION IN GRAFT Dental Procedures Routine 1 Occurrence s starting 07/13/2024 25 25 FREE SOFT TISSUE GRAFT PROCEDUREEACH ADDITIONAL CONTIGUOUS SITE Dental Procedures Routine 1 Occurrences starting 07/13/2024 24 24 (PERIO) BIOLOGIC MATERIAL TO AID IN SOFT AND OSSEOUS TISSUE REGENERATION Dental Procedures Routine 1 Occurren rosie starting 07/13/2024 SURGICAL STENT Dental Procedures Routine 1 O ccurrences starting 07/13/2024 28 28 AUTOGENOUS CONNECTIVE TISSUE GRAFT PROCEDURE FIRST Dental Procedures Routine 1 Occurr ences starting 07/13/2024 29 29 AUTOGENOUS CONNECTIVE TISSUE GRAFT PROCEDURE EACH ADDITIONAL SITE Dental Procedures Routine 1 Occurrences starting 07/13/2024 28 28 (PERIO) BIOLOGIC MATERIAL TO AID IN SOFT AND OSSEOUS TISSUE REGENERATION Dental Procedures Routine 1 Occurren rosie starting 07/13/2024 documented as of this encounter Procedures Procedure Name Priority Date/Time Associated Diagnosis Comments PERIO CONSULT Routine 07/13/2024 10:00 AM MDT documented in this encounter Visit Diagnoses Not on filedocumented in this encounter
--- OUTSIDE RECORDS SUMMARY | 2024-08-31 20:22 | XMS_ITS ---
Author Organization [facility] Address [address] [place] [address] Phone Care Team Providers Care It Support Consultant Name Role Phone Doc, Update Unavailable Unavailable Alexis SANTOS, Matti Unavailable [phone] Briana KOHLI - [facility], María Montemayor Primary Care Prov ider [phone] Problems Includes: Active, inactive, and resolved Problems All Visits Onset Date Resolved Date Provider Condition S tatus Abdominal Pain 12/02/2023 Matti Espinoza PA-C Active Last Documented On 4 1:11PM ; [facility] Cirrhosis 10/14/2022 Kai Byrnes MD Active Last Documented On 2 10:02AM ; [facility] Hypertension Systemic 10/14/2022 Kai Byrnes MD Active Last Documented On 2 10:07AM ; [facility] Hyperlipidemia 07/29/2022 Kai Byrnes MD Acti ve Last Documented On 2 9:09PM ; [facility] Iron Deficiency Anemia 07/29/2022 Kai Byrnes MD Active Last Documented On 2 9:09PM ; [facility] Fatty Liver 07/29/2022 Kai Byrnes MD Active Last Documented On 2 9:09PM ; [facility] Obesity 07/29/2022 Kai Byrnes MD Active Last Documented On 2 9:09PM ; [facility] Nonspecific Abnormal Results of Function Studies Liver 07/16/2022 Kai Byrnes MD Active Last Documented On 2 11:03AM ; [facility] Diarrhea 09/27/2020 Jorge Friedman MD Act darrel Last Documented On 0 3:24PM ; [facility] Abnormal Hepatic Enzyme 09/27/2020 Kai smiley MD Inactive Last Documented On 2 9:09PM ; [facility] Nausea with Vomiting 09/27/2020 Kai Covington Inactive Last Documented On 2 9:10PM ; [facility] 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 Jorge Friedman MD Active Last Documented On 0 9:51AM ; [facility] Elevated Liver Enzymes 07/11/2020 Kai Byrnes MD Inactive Last Documented On 2 11:03AM ; [facility] Plan of Treatment Findings Encounter Date Ordered weight loss diet Office Visit Follow-Up with Kai Byrnes MD 10/14/2022 Last Documented On 2 10:07AM ; [facility] Ordered weight loss diet Established Pt., New Do ctor with Kai Byrnes MD 07/16/2022 Last Documented On 2 9:17PM ; [facility] Clinical summary provided to patient Rec all liver with Jorge Friedman MD 08/08/2020 Last Documented On 0 2:32PM ; [facility] Clinical summary provided to patient [facility] Patient with Jorge Friedman MD 07/11/2020 Last Documented On 0 1:46PM ; [facility] Pending Tests Order Diagnosis Results Due Ordering P rojair 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 Kana Gandara MD Last Documented On 9 12:00PM ; [facility] Lab HEP: Hepatitis A Antibody, IgM 07/18 Jorge Friedman MD Last Documented On 0 10:15AM ; [facility] Lab LAB: HEP B: HBSAB (Surf AB) 07/18/20 Jorge Friedman MD Last Documented On 0 10:15AM ; [facility] LAB: HEP B: HBSAG (Surf Ag) 07/18/20 Jorge Friedman MD Last Documented On 0 10:15AM ; [facility] LAB: HEP C HCVAB (Antibody) 07/18/20 Jorge Friedman MD Last Documented On 0 10:15AM ; [facility] LAB: PT/INR 07/18/20 Jorge prather MD Last Documented On 0 10:15AM ; [facility] LIVER: Anti-Smooth Muscle Ab by IFA 07/18/20 Jorge Friedman MD Last Documented On 0 10:15AM ; [facility] LIVER: SPEP 07/18/20 Jorge prather MD Last Documented On 0 10:15AM ; [facility] LIVER: Antinuclear Antibodies, IFA 0 07/18/20 Jorge Friedman MD Last Documented On 0 10:15AM ; [facility] LIVER: Ferritin, Serum 07/18/20 Ri sadi Friedman MD Last Documented On 0 10:15AM ; [facility] LIVER: Hepatic Funtion ([id number]) 0 08/02/20 Jorge Friedman MD Last Documented On 0 9:42AM ; [facility] LIVER: Hepatic Funtion ([id number]) 0 08/15/20 Jorge Friedman MD Last Documented On 0 9:57AM ; [facility] LIVER: Hepatic Funtion ([id number]) 1 Jorge Friedman MD Last Documented On 0 9:00AM ; [facility] LIVER: E histolytica, Amebic Antibodies 08/27/20 Jorge Friedman MD Last Documented On 0 9:00AM ; [facility] LIVER: Hepatic Funtion ([id number]) 1 Jorge Friedman MD Last Documented On 0 12:05PM ; [facility] COVID Pre-Procedure Testing PCR 09/23 02/09 Kana Gandara MD Last Documented On 0 9:22AM ; [facility] Procedures EUS Gastrointestinal stromal tumor, unspecified site 10/11/20 Jorge Friedman MD Last Documented On 0 3:36PM ; [facility] Imaging - Fluoroscopy Upper GI Series with Small Bowel Follow Through Nausea with vomiting, unspecified 04/26/21 Humberto Duval MD Last Documented On 1 2:22PM ; [facility] Lab LIVER: Anti-Mitochondrial Ab by IFA 07/23/22 Kai Byrnes MD Last Documented On 2 11:06AM ; [facility] Lab LIVER: Anti-Smooth Muscle Ab by IFA 07/23/22 Kai Byrnes MD Last Documented On 2 11:06AM ; [facility] Lab HEP: Hepatitis B Core Ab, Total 06/25 12/14 Kai Byrnes MD Last Documented On 2 11:06AM ; [facility] Lab LAB: Complete Metabolic Panel (CMP) 07/23/22 Kai Byrnes MD Last Documented On 2 11:06AM ; [facility] Lab LAB: TSH 07/23/22 Kai Byrnes MD Last Documented On 2 11:06AM ; [facility] Lab LAB: Immunoglobulin M, Quantitative IgM 07/23/22 Kai Byrnes MD Last Documented On 2 11:06AM ; [facility] Lab CELIAC: Immunoglobul in A, Quantitative IgA (Total IgA) 07/23/22 Kai Byrnes MD Last Documented On 2 11:06AM ; [facility] Lab LAB: Immunoglobulin G, Quantitative IgG 07/23/22 Kai Byrnes MD Last Documented On 2 11:06AM ; [facility] Lab LIVER: Antinuclear Antibodies, IFA 0 07/23/22 Kai Byrnes MD Last Documented On 2 11:06AM ; [facility] Lab LIVER: Prothrombin Time (PT)/INR Kai Byrnes MD Last Documented On 2 11:06AM ; [facility] Lab LIVER: Ohpyg-6-Ulocqaeiqpl, Serum Kai Byrnes MD Last Documented On 2 11:06AM ; [facility] Lab LAB: Complete Blood Count (CBC) without Differe ntial 07/23/22 Kai Byrnes MD Last Documented On 2 11:06AM ; [facility] Lab CELIAC: t-Transglutaminase (tTG) IgA 07/23/22 Kai Byrnes MD Last Documented On 2 11:06AM ; [facility] Imaging - FibroScan FibroScan Abnormal res ults of liver function studies 07/30/22 Kai Byrnes MD Last Documented On 2 11:05AM ; [facility] Lab LAB: Complete Metabolic Panel (CMP) 10/21/22 Kai Byrnes MD Last Documented On 2 10:04AM ; [facility] Lab LIVER: Prothrombin Time (PT)/INR Kai Byrnes MD Last Documented On 2 10:04AM ; [facility] Lab LAB: Complete Blood Count (CBC) without Differe ntial 10/21/22 Kai Byrnes MD Last Documented On 2 10:04AM ; [facility] Lab LIVER: Alpha-Fetoprotein (AFP), Tumor Marker 10/21/22 Kai Byrnes MD Last Documented On 2 10:04AM ; [facility] Imaging - CT Scan CT Abdomen with & without contrast Other cirrhosis of liver 10/28/22 Kai Byrnes MD Last Documented On 3 4:18PM ; [facility] Lab LAB: Complete Metabolic Panel (CMP) 06/04/23 Joceline Temple PA-C Last Documented On 3 2:49PM ; [facility] Lab LIVER: Prothrombin Time (PT)/INR Joceline Temple PA-C Last Documented On 3 2:49PM ; [facility] Lab LAB: Complete Blood Count (CBC) with Differenti al 06/04/23 Joceline Temple PA-C Last Documented On 3 2:49PM ; [facility] Imaging - Ultrasound RUQ Abdominal Ultrasound Other cirrhosis of liver 08/26/23 Joceline Temple PA-C Last Documented On 3 2:08PM ; [facility] Imaging - FibroScan FibroScan Other cirrhosis of liver Joceline Temple PA-C Last Documented On 3 10:07AM ; [facility] Lab URINE: 5-Hydroxyindo leacetic Acid (HIAA), Quant, 24-Hour 12/09/23 Matti Espinoza PA-C Last Documented On 4 8:22PM ; [facility] Lab LAB: Tryptase 12/09/23 Matti Deleon-Helene Last Documented On 4 8:22PM ; [facility] Lab LAB: Vasoactive Intestinal Polypeptide (VIP), P lasma 12/09/23 Matti Espinoza PA-C Last Documented On 4 8:22PM ; [facility] 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 Unspecified abdo jose pain Note: to [facility] allergy/immunology Last Documented On 4 12:49PM ; [facility] Instructions to patient Instructions for patient Last Documented On 3 8:21AM ; [facility] Education and Decision Aids were provided during visit for: Education and counseling Last Documented On 3 8:21AM ; [facility] Education and counseling Last Documented On 2 9:43AM ; [facility] Education and counseling Last Documented On 2 8:48PM ; [facility] Education and counseling - d iscussed and reviewed laboratory test results and liver biopsy and its indications Last Documented On 0 2:18PM ; [facility] Education and counseling - d iscussed and reviewed laboratory test results Last Documented On 0 1:41PM ; [facility] Future Tests Order Diagnosis Results Due Ordering Pr ovider Follow Up OV - Follow-Up with VANI 3 Months with PA Unspecified abdominal pain 04/11/24 Matti Alexis PA-C Last Documented On 4 10:51AM ; [facility] Assessments Includes: Assessments for all patient encounters Findings Encounter Date Abdominal pain Office Visit PA- 20 Min with Bhavin in Alexis PA-C 03/03/2024 Last Documented On 4 12:11PM ; [facility] Cirrhosis Office Visit PA- 20 Min with Bhavin in Alexis PA-C 03/03/2024 Last Documented On 4 12:11PM ; [facility] Fatty liver Office Visit PA- 20 Min with Bhavin in Alexis PA-C 03/03/2024 Last Documented On 4 12:11PM ; [facility] Abdominal pain Office Visit PA- 20 Min with Bhavin in Alexis PA-C 12/02/2023 Last Documented On 4 8:24PM ; [facility] Cirrhosis Office Visit PA- 20 Min with Bhavin in Alexis PA-C 12/02/2023 Last Documented On 4 8:24PM ; [facility] Fatty liver Office Visit PA- 20 Min with Bhavin in Alexis PA-C 12/02/2023 Last Documented On 4 8:24PM ; [facility] Cirrhosis Office Visit PA- 20 Min with Briana Temple PA-C 09/15/2023 Last Documented On 3 10:19AM ; [facility] Fatty liver Office Visit PA- 20 Min with Briana Temple PA-C 09/15/2023 Last Documented On 3 10:19AM ; [facility] Hyperlipidemia Office Visit PA- 20 Min with Briana Temple PA-C 09/15/2023 Last Documented On 3 10:19AM ; [facility] Hypertension Office Visit PA- 20 Min with Briana Temple PA-C 09/15/2023 Last Documented On 3 10:19AM ; [facility] Iron deficiency anemia Office Visit PA- 20 Min w amy eTmple PA-C 09/15/2023 Last Documented On 3 10:19AM ; [facility] Obesity Office Visit PA- 20 Min with Briana carenmimi Maverick PA-C 09/15/2023 Last Documented On 3 10:19AM ; [facility] Cirrhosis office visit follow up -20 min w ith Joceline Maverick PA-C 03/19/2023 Last Documented On 3 8:25AM ; [facility] Fatty liver office visit follow up -20 min w ith Joceline Maverick PA-C 03/19/2023 Last Documented On 3 8:25AM ; [facility] Hyperlipidemia office visit follow up -20 min w ith Joceline Maverick PA-C 03/19/2023 Last Documented On 3 8:25AM ; [facility] Hypertension office visit follow up -20 min w ith Joceline Maverick PA-C 03/19/2023 Last Documented On 3 8:25AM ; [facility] Iron deficiency anemia office visit foll ow up -20 min with Joceline Temple PA-C 03/19/2023 Last Documented On 3 8:25AM ; [facility] Obesity office visit follow up -20 min w ith Joceline Maverick PA-C 03/19/2023 Last Documented On 3 8:25AM ; [facility] Cirrhosis Office Visit Follow-Up with Neo Byrnes MD 10/14/2022 Last Documented On 2 10:07AM ; [facility] Fatty liver Office Visit Follow-Up with Neo Byrnes MD 10/14/2022 Last Documented On 2 10:07AM ; [facility] Hyperlipidemia Office Visit Follow-Up with Neo Byrnes MD 10/14/2022 Last Documented On 2 10:07AM ; [facility] Hypertension Office Visit Follow-Up with Neo Byrnes MD 10/14/2022 Last Documented On 2 10:07AM ; [facility] Iron deficiency anemia Office Visit Follow-Up racheal Byrnes MD 10/14/2022 Last Documented On 2 10:07AM ; [facility] Obesity Office Visit Follow-Up with Neo Byrnes MD 10/14/2022 Last Documented On 2 10:07AM ; [facility] Assessment of nonspecific ab normal results of liver function studies Established Pt., New Doctor with Kai Byrnes MD 07/16/2022 Last Documented On 2 9:17PM ; [facility] Fatty liver Established Pt., New Doctor with Kai Byrnes MD 07/16/2022 Last Documented On 2 9:17PM ; [facility] Gastrointestinal stromal neoplasm Establ ished Pt., New Doctor with Kai Byrnes MD 07/16/2022 Last Documented On 2 9:17PM ; [facility] Hyperlipidemia Established Pt., New Doctor with Kai Byrnes MD 07/16/2022 Last Documented On 2 9:17PM ; [facility] Iron deficiency anemia Established Pt., New Doct or with Kai Byrnes MD 07/16/2022 Last Documented On 2 9:17PM ; [facility] Obesity Established Pt., New Doctor with Kai Byrnes MD 07/16/2022 Last Documented On 2 9:17PM ; [facility] Elevated liver enzymes Presumed DUDLEY off ice visit follow up -20 min with Humberto Duval MD 04/12/2021 Last Documented On 1 5:30PM ; [facility] Nausea with vomiting Which i s intermittent, associated with fullness of the esophagus and stomach, and started after her surgery for gist tumour, partial gastrectomy. Differential includes anatomical stricture, versus decreased motility of the upper GI tract office visit follow up -20 min with Humberto Duval MD 04/12/2021 Last Documented On 1 5:30PM ; [facility] Abnormal hepatic enzyme Recall liver with Anjel Friedman MD 09/27/2020 Last Documented On 0 3:00PM ; [facility] Diarrhea Recall liver with Jorge mendoza MD 09/27/2020 Last Documented On 0 3:00PM ; [facility] Gastrointestinal stromal neoplasm Recall liver w ith Jorge Friedman MD 09/27/2020 Last Documented On 0 3:00PM ; [facility] Nausea with vomiting Recall liver with Jorge Friedman MD 09/27/2020 Last Documented On 0 3:00PM ; [facility] Elevated liver enzymes Recall liver with Jorge Friedman MD 08/08/2020 Last Documented On 0 2:32PM ; [facility] Gastrointestinal stromal neoplasm Recall liver w ith Jorge Friedman MD 08/08/2020 Last Documented On 0 2:32PM ; [facility] Elevated liver enzymes [facility] Patient with Jorge Friedman MD 07/11/2020 Last Documented On 0 1:46PM ; [facility] Gastrointestinal stromal neoplasm [facility] Patient with Jorge Friedman MD 07/11/2020 Last Documented On 0 1:46PM ; [facility] Instructions Includes: Instructions for all patient encounters Instructions to patient Instructions for patient Last Documented On 3 8:21AM ; [facility] Education and Decision Aids were provided during visit for: Education and counseling Last Documented On 3 8:21AM ; [facility] Education and counseling Last Documented On 2 9:43AM ; [facility] Education and counseling Last Documented On 2 8:48PM ; [facility] Education and counseling - d iscussed and reviewed laboratory test results and liver biopsy and its indications Last Documented On 0 2:18PM ; [facility] Education and counseling - d iscussed and reviewed laboratory test results Last Documented On 0 1:41PM ; [facility] Medical Equipment - Implanted Devices Includes: Current and historical Devices No Medical Equipment Recorded Medications Includes: Current and historical Medications Current Medications (continue as prescribed) Tylenol PM Extra Strength 500-25 MG Oral Tablet 2023 Provider: Diagnosis: Last Documented On 4 10:25AM By Vickie Johns ; [facility] Pantoprazole Sodium 40 MG Oral Packet 03/03/2024 Pro vider: Diagnosis: PO Last Documented On 4 10:25AM By Vickie Johns ; [facility] Acyclovir 400 MG Oral Tablet 03/03/2024 Provider: Diagnosis: PO. Last Documented On 4 10:26AM By Vickie Johns ; [facility] Hyoscyamine Sulfate 0.125 MG Sublingual Tablet Sublingual 12/02/2023 Provider: Matti Welch Diagnosis: Unspecified abdo jose pain 1 every 4 - 6 hours as needed Last Documented On 4 1:28PM By Matti Espinoza PA-C ; [facility] Past Medications on file Pantoprazole Sodium 40 MG Oral Packet 12/02/2023 - 09/2024 Provider: Diagnosis: PO Last Documented On 4 10:25AM By Vickie Johns ; [facility] Tylenol PM Extra Strength 500-25 MG Oral Tablet 12/02/2023 - 03/03/2024 Provider: Diagnosis: Last Documented On 4 10:25AM By Vickie Johns ; [facility] Acyclovir 400 MG Oral Tablet 12/02/2023 - 03/03/2024 P rovider: Diagnosis: PO. Last Documented On 4 10:26AM By Vickie Johns ; [facility] Acyclovir 400 MG Oral Tablet 09/15/2023 - 09/15/2023 P rovider: Diagnosis: Last Documented On 3 9:51AM By Renard Marquez ; [facility] Acyclovir 400 MG Oral Tablet 09/15/2023 - 09/15/2023 P rovider: Diagnosis: PO. Last Documented On 3 9:52AM By Renard Marquez ; [facility] Pantoprazole Sodium 40 MG Oral Packet 09/15/2023 - 08/2024 Provider: Diagnosis: PO Last Documented On 4 12:42PM By Vickie Johns ; [facility] Acyclovir 400 MG Oral Tablet 09/15/2023 - 12/02/2023 P rovider: Diagnosis: PO. Last Documented On 4 12:42PM By Vickie Johns ; [facility] Tylenol PM Extra Strength 500-25 MG Oral Tablet 09/15/2023 - 12/02/2023 Provider: Diagnosis: Last Documented On 4 12:42PM By Vickie Johns ; [facility] Acyclovir 400 MG Oral Tablet 03/19/2023 - 09/15/2023 P rovider: Diagnosis: Last Documented On 3 9:51AM By Renard Marquez ; [facility] Pantoprazole Sodium 40 MG Oral Packet 03/19/2023 - Provider: Diagnosis: PO Last Documented On 3 9:51AM By Renard Marquez ; [facility] Acyclovir 400 MG Oral Tablet 07/16/2022 - 03/19/2023 P rovider: Diagnosis: Last Documented On 3 8:08AM By Renard Marquez ; [facility] Pantoprazole Sodium 40 MG Oral Packet 07/16/2022 - Provider: Diagnosis: PO Last Documented On 3 8:08AM By Renard Marquez ; [facility] Tums Unknown Oral Tablet 09/27/2020 - 07/16/2022 Provi ledy: Diagnosis: Last Documented On 2 10:29AM By Mata Hough ; [facility] Pantoprazole Sodium 40 MG Or al Tablet Delayed Release 07/11/2020 - 09/27/2020 Provider: Diagnosis: Last Documented On 0 2:48PM By Maria Del Rosario Doshi ; [facility] Acyclovir 400 MG Oral Tablet 07/11/2020 - 07/16/2022 P rovider: Diagnosis: Last Documented On 2 10:29AM By Mata Hough ; [facility] Krill Oil Ultra Strength 1500 MG Oral Capsule 07/11/20 20 - 09/27/2020 Provider: Diagnosis: Last Documented On 0 2:48PM By Maria Del Rosario Doshi ; [facility] Medications Administered Includes: Administered Medications in patient's chart No Administered Medications Recorded Vital Signs Includes: Vital Signs from 08/31/2023 through 08/31/2024 Vital Name 03/03/2024 10:27A 12/02/2023 12:45P 09/15 09:50A Blood Pressure Sitting L 123/71 132/74 148/92 Pulse Rate-Sitting (bpm) 62 64 64 Height (in) 64 64 64 Weight (lb) 176 177 177.4 Body Mass Index 30.2 30.4 30.5 Body Surface Area 1.9 1.9 1.9 Last Documented: On 03/03/2024 10:31A M ; [facility] On 12/02/2023 12:49PM ; [facility] On 09/15/2023 9:52AM ; [facility] Results Includes: Results from 08/31/2023 through 08/31/2024 TRYPTASE [facility]. Ordered by Matti Espinoza PA-C on 03/14/2024 Collected: 03/14/2024 Reported: 03/31/20 21:22 Last Documented On 4 8:36AM ; [facility] Reviewed on 04/04/2024; All test results are final unless otherwise noted. Review Note Provider Name Date S/w pt, relayed results/recs . Pt s/u and denied questions at this time. Pt stated she has an appt with allergy scheduled. Maura ACEVEDO 04/04/2024 TRYPTASE 5.3 mcg/L (<11.0) None Last Documented On 4 10:12AM ; [facility] Note: The Tryptase test, fluorescent enz yme immunoassay(FEIA), measures both the Alpha and Beta forms ofTryptase. Measuring both forms of Tryptase increasessensitivity for the diagnosis of mastocytosis, andmast cell degranulation as a cause of anaphylaxis. VASOACTIVE INTESTINAL POLYPEPTIDE(VIP),P LASMA [employer] [employer] Ordered by Matti Espinoza PA-C on 03/14/2024 Collected: 03/14/2024 Reported: 05/09/20 24 21:22 Last Documented On 4 8:36AM ; [facility] Reviewed on 04/04/2024; All test results are final unless otherwise noted. Review Note Provider Name Date S/w pt, relayed results/recs . Pt s/u and denied questions at this time. Pt stated she has an appt with allergy scheduled. Maura ACEVEDO 04/04/2024 VASOACTIVE INTESTINAL POLYPEPTIDE(VIP),PLASMA <50 pg/mL (<78) None Last Documented On 4 10:12AM ; [facility] Note: This test was performed using a radioimmunoassay method.Values obtained from different assay methods cannot be usedinterchangeably. VIP levels, regardless of value, should notbe interpreted as absolute evidence of the presence orabsence of disease. This test was developed and its analytical performancecharacteristics have been determined by [facility].It has not been cleared or approved by FDA. This assay hasbeen validated pursuant to the CLIA regulations and is usedfor clinical purposes. 5 HIAA, 24 HOUR URINE, W/O CREATININE [employer] Ordered by Matti Espinoza PA-C on 03/14/2024 Collected: 03/14/2024 Reported: 03/31/20 24 21:22 Last Documented On 4 8:36AM ; [facility] Reviewed on 04/04/2024; All test results are final unless otherwise noted. Review Note Provider Name Date S/w pt, relayed results/recs . Pt s/u and denied questions at this time. Pt stated she has an appt with allergy scheduled. Maura ACEVEDO 04/04/2024 TOTAL VOLUME 900 mL None Last Documented On 4 10:12AM ; [facility] 5 HIAA, 24 HOUR URINE 7.1 mg/24_h (< OR = 6.0) H (High) Last Documented On 4 10:12AM ; [facility] Note: This test was developed and its analytical performancecharacteristics have been determined by [facility].It has not been cleared or approved by FDA. This assay hasbeen validated pursuant to the CLIA regulations and is usedfor clinical purposes. Reported Physicians [facility] Ordered by Matti Espinoza PA-C on 03/14/2024 Collected: 03/14/2024 Reported: 03/31/20 24 23:25 Last Documented On 4 8:36AM ; [facility] Reviewed on 04/04/2024; All test results are final unless otherwise noted. Review Note Provider Name Date S/w pt, relayed results/recs . Pt s/u and denied questions at this time. Pt stated she has an appt with allergy scheduled. Maura ACEVEDO 04/04/2024 Reported Physicians See Note None Last Documented On 04/01/2024 10:12AM ; [facility] Note: Reported Physicians:Ordering: Conrad Espinoza History of Present Illness History of Present Illness not supported for this document type No History of Present Illness Recorded Social History Description Last Updated Alcoholic drinks per drinking day 01 day sometimes 03/03/2024 Last Documented On 4 12:11PM ; [facility] Not a current smokeless tobacco user 09/2024 Last Documented On 4 12:11PM ; [facility] Not using drugs 03/03/2024 Last Documented On 4 12:11PM ; [facility] Smoking an unspecified numbe r of cigarettes per day Number of cigarettes per day 03/03/2024 Last Documented On 4 12:11PM ; [facility] Using marijuana Once per week THC 2023 Last Documented On 4 12:11PM ; [facility] Caffeine use 12 oz per day 03/03/2024 Last Documented On 4 12:11PM ; [facility] Current smoker 03/03/2024 Last Documented On 4 12:11PM ; [facility] Alcoholic drinks per drinking day 08/2024 Last Documented On 4 8:24PM ; [facility] Never smoked 07/16/2022 Last Documented On 2 9:17PM ; [facility] Never used drugs 07/16/2022 Last Documented On 2 9:17PM ; [facility] Single 04/12/2021 Last Documented On 1 5:30PM ; [facility] Alcohol rarely 07/11/2020 Last Documented On 0 1:46PM ; [facility] Single 07/11/2020 Last Documented On 0 1:46PM ; [facility] Smoking Status Unknown Procedures and Surgical History Includes: Procedures from 08/31/2023 through 08/31/2024 Procedures Code Diagnosis Performing Provider Service Location Service Date FibroScan (Liver Elastography) 13919 Fatty (change of) liver, not elsewhere classified, Hepatic fibrosis, advanced fibrosis Joceline Temple PA-C [facility] 10/14/2023 Last Documented On 3 12:14PM ; [facility] Surgical History Last Updated History of abdominal / peritoneal surger y 03/03/2024 Last Documented On 4 12:11PM ; [facility] History of eye surgery 03/03/2024 Last Documented On 4 12:11PM ; [facility] History of knee surgery 03/03/2024 Last Documented On 4 12:11PM ; [facility] Prior surgery Tumor removed from stomach 11/01/2019 09/15/2023 Last Documented On 3 10:19AM ; [facility] History of surgery : DaVinci partial gas trectomy 11/01/19 09/27/2020 Last Documented On 0 3:00PM ; [facility] Medical History Includes: Medical History in patient's chart Description Last Updated Complete colonoscopy 07/09/2022 EGD 07/09 ~Fibroscan 10-14-2023 03/03/2024 Last Documented On 4 12:11PM ; [facility] History of arthritis 03/03/2024 Last Documented On 4 12:11PM ; [facility] 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 Last Documented On 4 12:11PM ; [facility] History of migraine headache 12/02/2023 Last Documented On 4 8:24PM ; [facility] History of other diagnoses and condition s 07/16/2022 Last Documented On 2 9:17PM ; [facility] No past medical history reported 020 Last Documented On 0 1:46PM ; [facility] Family History Includes: Family History in patient's chart Description Last Updated Family history of No Family History of B reast Cancer 03/03/2024 Last Documented On 4 12:11PM ; [facility] Family history of No Family History of C eliac Disease 03/03/2024 Last Documented On 4 12:11PM ; [facility] Family history of No Family History of C olon Polyps 03/03/2024 Last Documented On 4 12:11PM ; [facility] Family history of No Family History of C olorectal Cancer 03/03/2024 Last Documented On 4 12:11PM ; [facility] Family history of No Family History of Esophageal Cancer/Duenas's Esophagus 03/03/2024 Last Documented On 4 12:11PM ; [facility] Family history of No Family History of G astric Cancer 03/03/2024 Last Documented On 4 12:11PM ; [facility] Family history of No Family History of P ancreatic Cancer 03/03/2024 Last Documented On 4 12:11PM ; [facility] Family history of No Family History of U lcerative Colitis 03/03/2024 Last Documented On 4 12:11PM ; [facility] Family history of No Family History of U terine/Cervical Cancer 03/03/2024 Last Documented On 4 12:11PM ; [facility] No known Family History of Breast Cancer 03/03/2024 Last Documented On 4 12:11PM ; [facility] No known Family History of Celiac Diseas e 03/03/2024 Last Documented On 4 12:11PM ; [facility] No known Family History of Colon Polyps 03/03/2024 Last Documented On 4 12:11PM ; [facility] No known Family History of Colorectal Ca ncer 03/03/2024 Last Documented On 4 12:11PM ; [facility] No known Family History of Crohn's Disea se 03/03/2024 Last Documented On 4 12:11PM ; [facility] No known Family History of Esophageal Ca ncer/Duenas's Esophagus 03/03/2024 Last Documented On 4 12:11PM ; [facility] No known Family History of Gastric Cance r 03/03/2024 Last Documented On 4 12:11PM ; [facility] No known Family History of Pancreatic Ca ncer 03/03/2024 Last Documented On 4 12:11PM ; [facility] No known Family History of Ulcerative Co litis 03/03/2024 Last Documented On 4 12:11PM ; [facility] No known Family History of Uterine/Cervi yolanda Cancer 03/03/2024 Last Documented On 4 12:11PM ; [facility] Family history of No Family History of C rohn's Disease 12/02/2023 Last Documented On 4 8:24PM ; [facility] Family history of malignant breast neopl asm Maternal Grandmother 07/11/2020 Last Documented On 0 1:46PM ; [facility] No family history of celiac disease 06/23 Last Documented On 0 1:46PM ; [facility] No family history of cervical neoplasm 0 07/11/2020 Last Documented On 0 1:46PM ; [facility] No family history of Crohn's disease Last Documented On 0 1:46PM ; [facility] No family history of Family history of c olon polyps 07/11/2020 Last Documented On 0 1:46PM ; [facility] No family history of gastric neoplasm Last Documented On 0 1:46PM ; [facility] No family history of pancreatic neoplasm 07/11/2020 Last Documented On 0 1:46PM ; [facility] No family history of ulcerative colitis 07/11/2020 Last Documented On 0 1:46PM ; [facility] Review of Systems Review of Systems not supported for this document type No Review of Systems Recorded Mental Status No Mental Status Recorded Functional Status No Functional Status Recorded Physical Exam Physical Exam not supported for this document type No Physical Exam Recorded Allergies Includes: Active, inactive, and resolved Allergies Substance Type Reaction Onset Date Resolved Date Statu s Amoxicillin Allergy 04/12/2021 Active Last Documented On 4 10:31AM ; [facility] Encounters Includes: Encounters from 08/31/2023 through 08/31/2024 Encounter Provider Location Date Check-In Time Check-Out Time Diagnosis Office Visit PA- 20 Min Matti Espinoza PA-C [facility] 03/03/20 10:17AM 12:59PM Fatty Liver,Cirrhos is,Abdominal Pain [Patient Encounter] Matti Espinoza PA-C 03/03/20 24 12/02/2023 7:41AM 12/02/2023 11:59PM Office Visit PA- 20 Min Matti Espinoza PA-C [facility] 12/02/19 12:38PM 1:42PM Fatty Liver,Cirrhos is,Abdominal Pain FibroScan Joceline Temple PA-C [facility] 10/14/20 9:34AM 9:49AM Office Visit PA- 20 Min Joceline Temple PA-C [facility] 09/15/20 9:36AM 10:19AM Fatty Liver,Cirrhos is,Iron Deficiency Anemia,Hypert ension Systemic,Obes ity,Hyperlipi demia Insurance Includes: Active Insurance Policies Plan Name Member ID Group # Subscriber Relationship Effect darrel Dates 1 - [employer] Care Claim [id number] Suzanna zurita Clinical Notes Includes: Signed Clinical Notes starting from 12/11/2023 * Progress note Date Encounter Last Documented by 03/03/2024 Office Visit PASav 20 Min Last doc umented on 03/03/2024; 12:11 PM, Matti Alexis PA-C; [facility] Active Problems & Conditions - Abdominal Pain [...] 5-Hydroxyindoleacetic Acid (HIAA), Quant, 24-Hour - CPT: 77186 Lab: LAB: Tryptase - CPT: 22691 Lab: LAB: Vasoactive Intestinal Polypeptide (VIP), Plasma - CPT: 79788 Follow Up OV/Follow-Up with VANI: 3 Months with PA Referral: Ethnology Professor Instructions: to [facility] allergy/immunology EndCited 1. Abdominal pain ?? [...] - Gastroenterology - María Warren MD - [facility] - Primary Care
--- OUTSIDE RECORDS SUMMARY | 2024-08-31 20:23 | XMS_ITS | Encounter Summary ---
Author Organization [facility] Address [address] [place] [address] Care Team Providers Care Corporate Webmaster Name Role Phone María Warren MD Primary Care Provider Reason for Visit * Reason Comments Med Refill Encounter Details Date Type Department Care Team (Late st Contact Info) Description 06/26/2024 Refill [facility] [address] [place] [phone] María Warren MD [address] [place] [address] HSV infection Social History Tobacco Use Types Packs/Day Years Used Date Smoking Tobacco: Never Smokeless Tobacco: Never Alcohol Use Standard Drinks/Week Comments Yes 2 (1 standard drink = 0.6 oz pure alcohol) NO ALCOHOL WITHIN 72 HOURS PRIOR TO SURGERY [facility] Utilities Answer Date Recorded In the past 12 months has e [employer] gas, oil, or water [employer] threatened to shut off services in your [...] week 06/02/2024 How often do you attend [facility] or hinduism services? Patient declined 06/02/2024 Do you belong to any clubs o r organizations such as jainism groups, unions, fraternal or athletic groups, or [...] and heating? Not hard at all 06/02/2024 [facility] [employer] of Occupat ional Health - Occupational Stress [...] place to sleep or slept in a skilled nursing (including now)? No 02/23/2023 Housing Stability Vital Sign Answer Aldair e Recorded In the last 12 months, was t here a time when you were not able to pay the mortgage or rent on time? No 06/02/2024 In the past 12 months, how m any times have you moved where you were living? 0 06/02/2024 At any time in the past 12 m [facility], were you homeless or living in a skilled nursing (including now)? No 06/02/2024 Sex and Gender Information Value Date Recorded Sex Assigned at Female 03/21/2024 8:29 AM MDT Gender Identity Female 11/04/2019 6:06 PM MST Sexual Orientation Straight 11/04/2019 6: 06 PM MST Job Start Date Occupation Industry Not on file Not on file Not on file documented as of this encounter Plan of Treatment Upcoming Encounters Date Type Department Care Team (Late st Contact Info) Description 09/19/2024 1:00 PM MDT Office Visit [facility] [place] [phone] María Warren MD [facility] [place], [place] [phone] documented as of this encounter Visit Diagnoses Diagnosis HSV infection 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
--- OUTSIDE RECORDS SUMMARY | 2024-08-31 20:23 | XMS_ITS | Encounter Summary ---
Author Organization [facility] Address [address] [place] [address] Care Team Providers Care Joint Filler Name Role Phone María Warren MD Primary Care Provider Reason for Referral * Consultation (Routine) - Authorized Specialty Diagnoses / Procedures Referred By Frederic camp Referred To Contact Urology Diagnoses Recurrent UTI María Warren MD [address] [place] [phone] Jocelyne Guidry [address] [phone] Referral ID Status Reason Start Date Expiration Date Visits Requested Visits Authorized [id number] Authorized Specialty Services Required 07/26/2024 07/26/2025 99 99 Encounter Details Date Type Department Care Team (Late st Contact Info) Description 07/26/2024 Orders Only [facility] [address] [place] [phone] María Warren MD [address] [place] [phone] Recurrent UTI (Primary Dx) Social History Tobacco Use Types Packs/Day Years Used Date Smoking Tobacco: Never Smokeless Tobacco: Never Alcohol Use Standard Drinks/Week Comments Yes 2 (1 standard drink = 0.6 oz pure alcohol) NO ALCOHOL WITHIN 72 HOURS PRIOR TO SURGERY [facility] Utilities Answer Date Recorded In the past 12 months has th e [employer], gas, oil, or water [employer] threatened to shut off services in your [...] How often do you attend chur or druze services? Patient declined 06/02/2024 Do you belong to any clubs o r organizations such as anabaptist groups, unions, fraternal or athletic groups, or [...] and heating? Not hard at all 06/02/2024 [facility] of Occupat ional Health - Occupational Stress [...] place to sleep or slept in a senior living (including now)? No 02/23/2023 Housing Stability Vital Sign Answer Aldair e Recorded In the last 12 months, was t here a time when you were not able to pay the mortgage or rent on time? No 06/02/2024 In the past 12 months, how m any times have you moved where you were living? 0 06/02/2024 At any time in the past 12 m [facility], were you homeless or living in a senior living (including now)? No 06/02/2024 Sex and Gender [...] Description 09/19/2024 1:00 PM MDT Office Visit [facility] [address] [place] [phone] María Warren MD [address] [place] [phone] Scheduled Referrals Name Type Priority Associated Diagnoses Order Schedule Ambulatory referral to Urogynecology Outpatient Referral Routine Recurrent UTI Expected: 08/25/2024 (Approximate), Expires: 07/26/2025 documented as of this encounter Visit Diagnoses Diagnosis Recurrent UTI- Primary Urinary tract infection, site not specified documented in this encounter Additional Health Concerns Assessment Noted Time PHQ-9 Depression Total Score: 0 06/02/20 24 1:47 PM MDT A fall risk assessment has been complete d for the patient 10/02/2021 10:51 AM MST documented as of this encounter Care Teams Joint Filler Relationship Specialty Start Date End Date María Warren MD [address] [place] [phone] PCP - General Family Medicine 03/02/23 documented as of this encounter
--- OUTSIDE RECORDS SUMMARY | 2024-08-31 20:23 | XMS_ITS | Referral Summary ---
Author Organization [facility] Address [facility] access hospital[address], [address] [place] [address] Care Team Providers Care Picker Machine Operator Name Role Phone Jose Oneal MD Primary Care Provider [phone] Source Comments [facility] (Labor and Delivery) documents do not appear in the Encounter Summary [facility] Allergies Active Allergy Reactions Criticality Noted Date Comments Amoxicillin Hives 07/01/2013 Medications * Please verify current medications with patient. Medication Sig Dispensed Refills Start Date End Date Status oxyCODONE-acetaminoph en, 5-325 mg/tab, (FOR PERCOCET) 5-325 mg tablet Take 1 tablet by mouth. Active ACYCLOVIR ORAL Active pantoprazole sodium (PROTONIX ORAL) Active acetaminophen (TYLENOL ORAL) Active MULTIVITAMIN ORAL Active imatinib (GLEEVEC) 100 mg tabletIndications:sto pped i week ago Take 100 mg by mouth once a day before breakfast Active predniSONE (DELTASONE) 20 mg tablet Take by mouth Active OTHER as directed Bio-identical hormone cream Active Active Problems No known active problems Social History Tobacco Use Types Packs/Day Years Used Date Smoking Tobacco: Never Smokeless Tobacco: Never Alcohol Use Standard Drinks/Week Comments Yes 0 (1 standard drink = 0.6 oz pur e alcohol) occ. Sex and Gender Information Value Date Recorded Sex Assigned at Not on file Gender Identity Not on file Sexual Orientation Not on file Last Filed Vital Signs Vital Sign Reading Time Taken Comments Blood Pressure 153/98 10/11/2020 1:00 PM [facility] Pulse 62 10/11/2020 1:00 PM [facility] Temperature 36.1 ??C (97 ??F) 10/11/2020 11:39 AM [facility] Respiratory Rate 13 10/11/2020 1:00 PM [facility] Oxygen Saturation 96% 10/11/2020 1:00 PM [facility] Inhaled Oxygen Concentration - - Weight 93 kg (205 lb) 10/11/2020 9:45 AM [facility] Height 162.6 cm (5' 4) 10/11/2020 9:45 AM [facility] Body Mass Index 35.19 10/11/2020 9:45 AM [facility] Plan of Treatment Not on file Medical Devices Implanted Type Area Welding Machine Operator Friction Device Identifier Shelf Expiration Date Model / Serial / Lot Head Radial Tot 22mm Lft - [id number] Implanted:Qty: 1 on 07/04/2013 by Claribel Edmond MD at [facility] Other Left: Elbow [employer] ALISSA 04/22/2020 [id number] / -- / [id number] Stem Radial Flute Tapr 7mm Ti - [id number] Implanted:Qty: 1 on 07/04/2013 by Claribel Edmond MD at [facility] Left: Elbow [employer]ISSA 03/22/2020 [id number] / -- / [id number] Explanted Type Area Welding Machine Operator Friction Device Identifier Shelf Expiration Date Model / Serial / Lot Wire K Trocar .[id number] - [id number] Explanted:Qty: 1 on 07/04/2013 by Claribel Edmond MD at [facility] Left: Elbow [employer] 07/04/2013 [id number] / - / N/A Advance Directives * Full Code (Latest Code Status on File) Date Activated Date Inactivated Comments 03/10/2019 10:08 AM 03/10/2019 4:05 PM Care Teams Picker Machine Operator Relationship Specialty Start Date End Date Jose Oneal MD [address] [place] [address] [phone] [facility] [place] [address] PCP - General Family Medicine 03/09/19
--- OUTSIDE RECORDS SUMMARY | 2024-08-31 20:23 | XMS_ITS | Referral Summary ---
Author Organization [facility] Address [address] [place] [address] Care Team Providers Care Sports Marketing Internship Name Role Phone María Warren MD Primary Care Provider [phone] Encounters Date Type Department Care Team Description 07/26/2024 Orders Only [facility] [address] [place] [phone] María Warren MD Recurrent UTI (Primary Dx) 07/13/[address] [address] María Warren MD Appointment (Called pt to Sched [facility] appt w [employer] Adjunct English Instructor. 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 Adult (>= 19yrs) 04/15/2021,08/09/2020 Hepatitis B 04/15/2021,09/21/2020,08/09/2020 Influenza Split High Dose Pr eservative Free IM 08/04/2022,09/21/2020 Influenza, seasonal, injectable 09/29/2010 Influenza, seasonal, injecta ble, Preservative Free 09/26/2013 Moderna SARS-CoV-2 Booster 11/13/2021 Moderna SARS-CoV-2 Vaccination 01/22/2021,2020 Pfizer SARS-CoV-2 Vaccination (CALIX TOP) 022 Tdap 05/19/2012 Zoster 05/19/2012 Zoster Recombinant 02/18/2021,10/30/2020 Social History Tobacco Use Types Packs/Day Years Used Date Smoking Tobacco: Never Smokeless Tobacco: Never Alcohol Use Standard Drinks/Week Comments Yes 2 (1 standard drink = 0.6 oz pure alcohol) NO ALCOHOL WITHIN 72 HOURS PRIOR TO SURGERY [facility] Utilities Answer Date Recorded In the past 12 months has e [employer], gas, oil, or water [employer] threatened to shut off services in your home? No 06/02/2024 Humiliation, Afraid, Rape, and Kick questionnair e Answer Date Recorded Within the last year, have y ou been afraid of your partner or ex-partner? No 02/23/2023 Within the last year, have y ou been humiliated or emotionally abused in other ways by your partner or ex-partner? No 04 /01/2023 Within the last year, have y ou [...] How often do you attend [facility] or amish services? Patient declined 06/02/2024 Do you belong to any clubs o r organizations such as mandaeism groups, unions, fraternal or athletic groups, or [...] and heating? Not hard at all 06/02/2024 [facility] [place] of Occupat ional Health - Occupational Stress [...] place to sleep or slept in a fpc (including now)? No 02/23/2023 Housing Stability Vital Sign Answer Aldair e Recorded In the last 12 months, was t here a time when you were not able to pay the mortgage or rent on time? No 06/02/2024 In the past 12 months, how m any times have you moved where you were living? 0 06/02/2024 At any time in the past 12 m [facility], were you homeless or living in a fpc (including now)? No 06/02/2024 Sex and Gender [...] Comments Blood Pressure 114/70 06/02/2024 1:58 PM MDT Pulse 76 06/02/2024 1:58 PM MDT Temperature [...] Description 09/19/2024 1:00 PM MDT Office Visit [facility] [address] [place] [phone] [place] [address] [place] [phone] Medical Devices Implanted Type Area Steak Sauce Maker Device Identifier Shelf Expiration Date Model / Serial / Lot Tibial Component 5536-B-300 - [id number] Implanted:Qty: 1 on 10/01/2021 by Benedict Go MD at [facility] Implant - Other Right: Knee [employer]WILNER DELEON [id number] 06/14/2026 5536-B-30 0 / / [id number] Femur #3 Right Pa 5517-F-302 - [id number] Implanted:Qty: 1 on 10/01/2021 by Benedict Go MD at [facility] Implant - Other Right: Knee [employer] [id number] 07/16/2024 5517-F-30 2 / / [id number] Patella Asymmetric Sz29 9 - [id number] Implanted:Qty: 1 on 10/01/2021 by Benedict Go MD at [facility] Implant - Other Right: Knee [employer]WILNER [employer] [id number] 07/03/2026 5552-L-29 9 / / [id number] Insert Sz3x10 9937-T-469-E - [id number] Implanted:Qty: 1 on 10/01/2021 by Benedict Go MD at [facility] Implant - Other Right: Knee [employer] ALEXANDR/WILNER DELEON [id number] 03/17/2026 5531-G-31 0-E / / [id number] Procedures Procedure Name Priority Date/Time Associated Diagnosis Comments URINE CULTURE Routine 06/02/2024 2:42 PM MDT Dysuria MAMMOGRAM SCREENING MANUEL BILATERAL Routine 03/03/2023 7:39 AM MDT Screening due HM COLONOSCOPY Routine 07/09/2022 from Last 3 Months or Most Recently Relevant to Health Maintenance Results * (ABNORMAL) Urine Culture (06/02/2024 2:42 PM MDT) Pathologist [facility] Urine Culture ESCHERICHIA COLI(A) 06/04/2024 7:43 AM MDT [facility] Urine Culture 1,000 - 9,000 CFU/mL Mixed Bacteria(A) 06/04/2024 7:43 AM MDT [facility] Comment:Growth indicative of mixed bacterial microbiota; possible contamination. ??Suggest appropriate recollection with timely delivery to laboratory if clinically indicated. Urine Urine specimen obtained by clean catch procedure / Unknown Non-blood Collection / Unknown 06/02/2024 2:42 PM MDT 06/02/2024 2:42 PM MDT Narrative [facility] - 06/04/2024 7:43 AM MDT The [...] an uncomplicated outpatient population likely indicates contamination. ??[place] counts of <100,000 CFU/mL in high-quality voided [...] recommended. María Warren MD LAB MICROBIOLOGY - G ENERAL ORDERABLES [facility] [address] [place] [address], * Mammogram screening manuel bilateral (03/03/2023 7:39 AM T) Anatomical Region Laterality Modality Breast, Non-Proc Bilateral [...] - Routine Screening Mammogram in 1 Yr. [facility] will send a result letter to the patient. ? Negative mammography should not preclude additional workup of a clinically suspicious finding. ? The patient's information is entered into a reminder system with a target due date for their next mammogram. María Warren MD IMG BI PROCEDURES * HM Colonoscopy (07/09/2022) Anatomical Region Laterality Modality Other 07/09/2022 Historical Provider [facility] from Last 3 Months or Most Recently Relevant to Health Maintenance Advance Directives For more information, please contact: [phone] * Full Code (Latest Code Status on File) Date Activated Date Inactivated Comments 10/01/2021 8:18 AM 10/02/2021 2:46 PM * Full Code Date Activated Date Inactivated Comments 11/04/2019 9:57 AM 11/07/2019 12:58 PM Healthcare Agents on File Name Relationship Healthcare Agent Relationship Communication Forest Martinez Daughter First Alternat e Health Care Agent Care Teams Sports Marketing Internship Relationship Specialty Start Date End Date María Warren MD [address] [place] [phone] PCP - General Family Medicine 03/02/23
--- OUTSIDE RECORDS SUMMARY | 2024-08-31 20:23 | XMS_ITS | Encounter Summary ---
Author Organization [facility] Address [address] [place] [address] Care Team Providers Care Spray Blender Name Role Phone María Warren MD Primary Care Provider [phone] Encounter Details Date Type Department Care Team (Late st Contact Info) Description 07/06/2023 Orders Only [facility] [address] [place] [phone] Alka Puga [address] [facility] [place] [place] [address] Urinary frequency; LLQ abdominal pain Social History Tobacco Use Types Packs/Day Years Used Date Smoking Tobacco: Never Smokeless Tobacco: Never Alcohol Use Standard Drinks/Week Comments Yes 2 (1 standard drink = 0.6 oz pure alcohol) NO ALCOHOL WITHIN 72 HOURS PRIOR TO SURGERY Humiliation, Afraid, Rape, and Kick questionnair e [...] neighbors? More than three times a week 02/23/2023 How often do you get togethe r with friends or relatives? Three times a week 02/23/2023 How often do you attend chur or yazidi services? Never 02/23/2023 Do you belong to any clubs o r organizations such as yazidi groups, unions, fraternal or athletic groups, or school groups? No 02/23/2023 How often do you attend meet ings of the clubs or organizations you belong to? 1 to 4 times per year 02/23/2023 Are you , , di vorced, , never , or living with a partner? 02/23/2023 AUDIT-C Answer Date Recorded Q1: How often do you have a drink containing alc ohol? 2-3 times a week 02/23/2023 Q2: How many drinks containi ng alcohol do you have on a typical day when you are drinking? 1 or 2 02/23/2023 Q3: How often do you have si x or more drinks on one occasion? Never 02/23/2023 Overall Financial Resource Strain (CARDIA) Answe r Date Recorded How hard is it for you to pa y for the very basics like food, housing, medical care, and heating? Not hard at all 02/23/2023 [facility] Occupat ional Health - Occupational Stress Questionnaire Answer Date Recorded Do you feel stress - tense, restless, nervous, or anxious, or unable to sleep at night because your mind is troubled all the time - these days? Only a little 02/23/2023 Exercise Vital Sign Answer Date Recorde d On average, how many days pe r week do you engage in moderate to strenuous exercise (like a brisk walk)? 2 days 02/23/2023 On average, how many minutes do you engage in exercise at this level? 10 min 02/23/2023 Hunger Vital Sign Answer Date Recorded Within the past 12 months, y ou worried that your food would run out before you got the money to buy more. Never true 02/24/20 23 Within the past 12 months, t he food you bought just didn't last and you didn't have money to get more. Never true 02/23/2023 PRAPARE - Transportation Answer Date Re corded In the past 12 months, has l ack of transportation kept you from medical appointments or from getting medications? No 01/2023 In the past 12 months, has l ack of transportation kept you from meetings, work, or from getting things needed for daily living? No 02/23/2023 Housing Stability Vital Sign Answer [...] place to sleep or slept in a jail (including now)? No 02/23/2023 Sex and Gender Information Value Date Recorded [...] Description 09/19/2024 1:00 PM MDT Office Visit [facility] [address] [place] [phone] María Warren MD [address] [place] [address] documented as of this encounter Procedures Procedure Name Priority Date/Time Associated Diagnosis Comments URINE CULTURE Routine 07/06/2023 1:04 PM MDT Urinary frequency LLQ abdominal pain documented in this encounter Results * (ABNORMAL) Urine Culture (07/06/2023 1:04 PM MDT) Urine Culture ENTEROCOCCUS FAECALIS(A) 07/08/2023 10:34 AM MDT [facility] Comment:Low colony count; Co ntact lab @ [phone] if additional workup is clinically indicated. Urine Culture 10,000 - 50,000 CFU/mL Normal Urogenital Microbiota 07/08/2023 10:34 AM MDT [facility] Urine Urine specimen obtained by clean catch procedure / Unknown Non-blood Collection / Unknown 07/06/2023 1:04 PM MDT 07/06/2023 1:04 PM MDT Narrative [facility] - 07/08/2023 10:34 AM MDT The isolation of more than 100,000 CFU/mL of a urinary pathogen is generally considered significant; however, the diagnosis of a UTI requires both significant bacteriuria and symptoms consistent with infection of the urinary tract, such as dysuria or urgency. Isolation of 2 or more organisms above 10,000 CFU/mL may suggest specimen contamination. ??For specimens contaminated with typical urogenital microbiota, bacteria that are potentially pathogenic are reported. ??Although urine is normally considered sterile, contamination by organisms usually present in the urethra or on periurethral surfaces can result in proliferation of these organisms causing misleading urine culture results. María Warren MD LAB MICROBIOLOGY - G ENERAL ORDERABLES [facility] [address] [place] [address], documented in this encounter Visit Diagnoses Diagnosis Urinary frequency LLQ abdominal pain Abdominal pain, left lower quadrant documented in this encounter Additional Health Concerns Assessment Noted Time PHQ-9 Depression Total Score: 0 07/03/20 3:57 PM MDT A fall risk assessment has been complete d for the patient 10/02/2021 10:51 AM [facility] documented as of this encounter Care Teams Spray Blender Relationship Specialty Start Date End Date María Warren MD [address] [place] [phone] PCP - General Family Medicine 03/02/23 documented as of this encounter
--- OUTSIDE RECORDS SUMMARY | 2024-08-31 20:23 | XMS_ITS | Encounter Summary ---
Author Organization [facility] Address [address] [place] [address] Care Team Providers Care Biofuels Research Scientist Name Role Phone María Warren MD Primary Care Provider [phone] Encounter Details Date Type Department Care Team (Latest Contact Info) Description 06/02/2024 Travel Social History Tobacco Use Types Packs/Day Years Used Date Smoking Tobacco: Never Smokeless Tobacco: Never Alcohol Use Standard Drinks/Week Comments Yes 2 (1 standard drink = 0.6 oz pure alcohol) NO ALCOHOL WITHIN 72 HOURS PRIOR TO SURGERY [facility] Utilities Answer Date Recorded In the past 12 months has [facility] [employer], gas, oil, or water [employer] threatened to shut off services in your [...] week 06/02/2024 How often do you attend [facility] or gnosticist services? Patient declined 06/02/2024 Do you belong [...] and heating? Not hard at all 06/02/2024 [facility] - [facility]ational [facility] Questionnaire Answer Date [...] place to sleep or slept in a half-way (including now)? No 02/23/2023 Housing Stability Vital Sign Answer Aldair e Recorded In the last 12 months, was t here a time when you were not able to pay the mortgage or rent on time? No 06/02/2024 In the past 12 months, how m any times have you moved where you were living? 0 06/02/2024 At any time in the past 12 m [facility], were you homeless or living in a half-way (including now)? No 06/02/2024 Sex and Gender [...] Description 09/19/2024 1:00 PM MDT Office Visit [facility] [address] [place] [phone] María Warren MD [address] [place] [address] documented as of this encounter Visit Diagnoses Not on filedocumented in this encounter Additional Health Concerns Assessment Noted Time PHQ-9 Depression Total Score: 0 06/02/20 24 1:47 PM MDT A fall risk assessment has been complete d for the patient 10/02/2021 10:51 AM [facility] documented as of this encounter Care Teams Biofuels Research Scientist Relationship Specialty Start Date End Date María Warren MD [facility] [place] [address] PCP - General Family Medicine 03/02/23 documented as of this encounter
--- OUTSIDE RECORDS SUMMARY | 2024-08-31 20:23 | XMS_ITS | Clinical Summary ---
Author Organization [facility] Address Regional Office [address] [place] [address] Care Team Providers Care Filters Assembler Name Role Phone Unavailable Primary Care Provider Unavailabl e Source Comments NOTE: The information displayed by Care Everywhere is extracted from the complete medical record and may not identify all current or past patient conditions.[facility] Allergies Active Allergy Reactions Criticality Noted Date Comments Amoxicillin Skin Rash and/or Hives 03/26/199819971998-03-26 Amoxicillin Trihydrate Skin Rash and/or Hives 1 01/03/2009 No Latex Allergy 11/20/2010 Medications Medication Sig Dispensed Refills Start Date End Date Status TRIAMCINOLONE ACETONIDE 0.1 % TOP CREAIndications:DERMA TITIS Apply a thin layer to affected area(s) twice a day for 7 to 10 days. Do not apply on the face. 80 2 09/18/2014 Active Active Problems Problem Noted Date Diagnosed Date SCREENING PAP SMEAR EXAM FOR CERVICAL CANCER Overview (04/13/2015): Hx of abn pap 1994 No Colpo Had Holistic treatment herbs and supplements Normal paps since Cotest done 03/2015 if normal march d/c Paps SCREENING FOR LIPID DISORDER 09/21/2014 Overview (09/21/2014): 10 yr CVD risk 7.5-10%- MODERATE - Moderate to High Intensity Statin Recommended OBESITY, BMI 35-39.9, ADULT 09/21/2014 Overview (09/21/2014): Estimated body mass index is 36.37 kg/(m^2) as calculated from the following: Height as of 09/18/14: 5' 4 (1.626 m). Weight as of 09/18/14: 212 lb (96.163 kg). PREDIABETES 09/19/2014 Overview (09/19/2014): HGA1C 6.0 09/18/2014 CLOSED FX RADIUS, HEAD. 06/30/2013 SCREENING FOR HYPERLIPIDEMIA 05/21/2012 Immunizations Name Administration Dates Next Due INFs pres free 3yrs-adult (FLUARIX) (Influenza) 09/26/2013 Tdap (Tetanus, diphtheria, acellular pertussis) 05/19/2012 ZOS (Zostervirus live, shingles) 05/19/2012 Family History Medical History Relation Comments Breast Cancer Grandmother maternal age 86 Coronary Artery Disease Mother 80's Diabetes Mother 80's Colon Cancer None Relation Status Comments Grandmother Mother None Social History Tobacco Use Types Packs/Day Years Used Date Smoking Tobacco: Never Smokeless Tobacco: Never Tobacco Cessation:Counseling Given: No Alcohol Use Standard Drinks/Week Comments Yes 0 (1 standard drink = 0.6 oz pur e alcohol) Sex and Gender Information Value Date Recorded Sex Assigned at Not on file Gender Identity Not on file Sexual Orientation Not on file Last Filed Vital Signs Vital Sign Reading Time Taken Comments Blood Pressure 132/84 04/30/2015 3:14 PM MDT Pulse 90 04/30/2015 3:14 PM MDT Temperature 36 ??C (96.8 ??F) 04/30/2015 3:14 PM MDT Respiratory Rate 18 04/30/2015 3:14 PM MDT Oxygen Saturation 95% 04/30/2015 3:14 PM MDT Inhaled Oxygen Concentration - - Weight 98 kg (216 lb) 04/30/2015 3:14 PM MDT Height 162.6 cm (5' 4) 04/30/2015 3:14 PM MDT Body Mass Index 37.08 04/30/2015 3:14 PM MDT Plan of Treatment Health Maintenance Due Date Last Done Comments COVID-19 Vaccine (2023-2 5 season) 2024 11/13/2021, 01/22/2021, 12/18/2020
--- OUTSIDE RECORDS SUMMARY | 2024-08-31 20:23 | XMS_ITS | Clinical Summary ---
Author Organization [facility] Address [facility] [address], [address] [place] [address] Care Team Providers Care Wallpaper Consultant Name Role Phone Jose Oneal MD Primary Care Provider [phone] Source Comments [facility] (Labor and Delivery) documents do not appear in the Encounter Summary [facility] Allergies Active Allergy Reactions Criticality Noted Date [...] Comments Blood Pressure 153/98 10/11/2020 1:00 PM [facility] Pulse 62 10/11/2020 1:00 PM [facility] Temperature 36.1 ??C (97 ??F) 10/11/2020 11:39 AM [facility] Respiratory Rate 13 10/11/2020 1:00 PM [facility] Oxygen Saturation 96% 10/11/2020 1:00 PM MST Inhaled Oxygen Concentration - - Weight 93 kg (205 lb) 10/11/2020 9:45 AM [facility] Height 162.6 cm (5' 4) 10/11/2020 9:45 AM [facility] Body Mass Index 35.19 10/11/2020 9:45 AM [facility] Plan of Treatment Health Maintenance Due Date Last Done Comments CT Colonography 1950 DNA-based stool test (Cologuard) 1950 DXA Scan 1950 Hepatitis C Screening 1950 Sigmoidoscopy 1950 gFOBT or FIT 1950 Colonoscopy 1995 Colorectal Cancer Screening 1995 Tetanus Diphtheria and Pertussis Vaccines (2 - Td or Tdap) 06/16/2012 05/19/2012 Pneumococcal Vaccine: 65+ Years (1 of 1 - PCV) 2015 Medicare Annual Wellness Visit, Calendar year 2023 COVID-19 Vaccine ( season) 2024 04/28/2022, 11/13/2021, 01/22/2021, Additional history exists Influenza Vaccine (#1) 2024 2, 09/21/2020, 09/26/2013, Additional history exists Breast Cancer Screening 03/03/2025 03/03/20 23, 07/07/2019, 04/13/2015, Additional history exists Zoster Vaccines Completed 02/18/2021, 06/2020, 05/19/2012 Hepatitis A Vaccine Aged Out 04/15/2021, 0 No longer eligible based on patient's age to complete this topic Hepatitis B Vaccine Completed 04/15/2021, 09/21/2020, 08/09/2020 HPV Vaccine Aged Out No longer eligi ble based on patient's age to complete this topic Hib Vaccine Aged Out No longer eligi ble based on patient's age to complete this topic IPV Vaccine Aged Out No longer eligi ble based on patient's age to complete this topic Meningococcal Vaccine (MCV4) Aged Out No longer eligible based on patient's age to complete this topic Rotavirus Vaccine Aged Out No longer eligible based on patient's age to complete this topic Medical Devices Implanted Type Area Water Softener Servicer Device Identifier Shelf Expiration Date Model / Serial / Lot Head Radial Tot 22mm Lft - [id number] Implanted:Qty: 1 on 07/04/2013 by Claribel Edmond MD at [facility] Other Left: Elbow ACUSON ALISSA 04/22/2020 [id number] / -- / [id number] Stem Radial Flute Tapr 7mm Ti - [id number] Implanted:Qty: 1 on 07/04/2013 by Claribel Edmond MD at [facility] Left: Elbow ACUSON ALISSA 03/22/2020 [id number] / -- / [id number] Explanted Type Area Water Softener Servicer Device Identifier Shelf Expiration Date Model / Serial / Lot Wire K Trocar .[id number] - [id number] Explanted:Qty: 1 on 07/04/2013 by Claribel Edmond MD at [facility] Left: Elbow ALHAJI BIOTE[employer] 07/04/2013 1346-1 / - / N/A Advance Directives * Full Code (Latest Code Status on File) Date Activated Date Inactivated Comments 03/10/2019 10:08 AM 03/10/2019 4:05 PM Care Teams Wallpaper Consultant Relationship Specialty Start Date End Date Jose Oneal MD [address] [place] [address] [address] [place] [address] PCP - General Family Medicine 03/09/19
--- OUTSIDE RECORDS SUMMARY | 2024-08-31 20:23 | XMS_ITS | Encounter Summary ---
Author Organization [facility] Address [address] [place] [address] Care Team Providers Care Reservations Sales Supervisor Name Role Phone María Warren MD Primary Care Provider [phone] Encounter Details Date Type Department Care Team (Late st Contact Info) Description 05/30/2024 Orders Only [facility] [address] [place] [phone] Adelfo Vaz MD [address] [place] [address] Gastrointestinal stromal tumor, unspecified site (CMS/HCC) Social History Tobacco Use Types Packs/Day Years [...] 02/23/2023 How often do you attend chur ch or temple services? Never 02/23/2023 Do you belong to any clubs o r organizations such as gnosticism groups, unions, [employer] or athletic groups, or school groups? No [...] and heating? Not hard at all 02/23/2023 [facility] of Occupat ional Health - Occupational Stress [...] place to sleep or slept in a usp (including now)? No 02/23/2023 Sex and Gender [...] Description 09/19/2024 1:00 PM MDT Office Visit [facility] [address] [place] [phone] María Warren MD [facility] [place], [place] [id number] Scheduled Orders Name Type Priority Associated Diagnoses Orde r Schedule Miscellaneous test Lab Routine Gastrointestinal stromal tumor, unspecified site (CMS/HCC) 1 Occurrences starting 05/30/2024 until 05/30/2025 documented as of this encounter Visit Diagnoses Diagnosis Gastrointestinal stromal tumor, unspecified site (CMS/HCC) documented in this encounter Additional Health Concerns Assessment Noted Time PHQ-9 Depression Total Score: 0 11/02/20 9:47 AM MST A fall risk assessment has been complete d for the patient 10/02/2021 10:51 AM MST documented as of this encounter Care Teams Reservations Sales Supervisor Relationship Specialty Start Date End Date María Warren MD [facility] [place] [address] PCP - General Family Medicine 03/02/23 documented as of this encounter
--- OUTSIDE RECORDS SUMMARY | 2024-08-31 20:23 | XMS_ITS | Encounter Summary ---
Author Organization [facility] Address [address] [place] [address] Care Team Providers Care Mailroom Supervisor Name Role Phone María Warren MD Primary Care Provider [phone] Reason for Visit * Reason Onset Date Comments Appointment 07/13/2024 Called pt to [facility] ed AWV appt w [employer] Operator. When pt calls PLEASE schedule w [employer]; Encounter Details Date Type Department Care Team (Late st Contact Info) Description 07/13/2024 Telephone [facility] [address] [place] [address] María Warren MD [address] [place] [address] Appointment (Called pt to [facility] AWV appt w [employer] Machine Operator. When pt calls PLEASE schedule w [employer];/) Social History Tobacco Use Types Packs/Day Years Used Date Smoking Tobacco: Never Smokeless Tobacco: Never Alcohol Use Standard Drinks/Week Comments Yes 2 (1 standard drink = 0.6 oz pure alcohol) NO ALCOHOL WITHIN 72 HOURS PRIOR TO SURGERY [facility] Utilities Answer Date Recorded In the past 12 months has [employer], gas, oil, or water Appointedd threatened to shut off services in your [...] week 06/02/2024 How often do you attend [facility] or protestant services? Patient declined 06/02/2024 Do you belong to any clubs o r organizations such as restoration groups, unions, fraternal or athletic groups, or [...] and heating? Not hard at all 06/02/2024 [facility] [place] of Occupat ional Health - Occupational Stress [...] place to sleep or slept in a penitentiary (including now)? No 02/23/2023 Housing Stability Vital Sign Answer Aldair e Recorded In the last 12 months, was t here a time when you were not able to pay the mortgage or rent on time? No 06/02/2024 In the past 12 months, how m any times have you moved where you were living? 0 06/02/2024 At any time in the past 12 m [facility], were you homeless or living in a penitentiary (including now)? No 06/02/2024 Sex and Gender Information Value Date Recorded Sex Assigned at Female 03/21/2024 8:29 AM MDT Gender Identity Female 11/04/2019 6:06 PM MST Sexual Orientation Straight 11/04/2019 6: 06 PM MST Job Start Date Occupation Industry Not on file Not on file Not on file documented as of this encounter Miscellaneous Notes * Telephone Encounter - Heather Durán - 07/13/2024 11:07 AM MDT Called pt to Sched AWV appt w [employer] Single [employer] Machine Operator. When pt calls PLEASE schedule w [employer] Machine Operator; documented in this encounter Plan of Treatment Upcoming Encounters Date Type Department Care Team (Late st Contact Info) Description 09/19/2024 1:00 PM MDT Office Visit [facility] [address] [place] [phone] María Warren MD [address] [place] [phone] documented as of this encounter Visit Diagnoses Not on filedocumented in this encounter Additional Health Concerns Assessment Noted Time PHQ-9 Depression Total Score: 0 06/02/20 24 1:47 PM MDT A fall risk assessment has been complete d for the patient 10/02/2021 10:51 AM MST documented as of this encounter Care Teams Mailroom Supervisor Relationship Specialty Start Date End Date María Warren MD [address] [place] [phone] PCP - General Family Medicine 03/02/23 documented as of this encounter
--- OUTSIDE RECORDS SUMMARY | 2024-08-31 20:23 | XMS_ITS | Encounter Summary ---
Author Organization [facility] Address [address] [place] [address] Care Team Providers Care Music Educator Name Role Phone María Warren MD Primary Care Provider [phone] Encounter Details Date Type Department Care Team (Late st Contact Info) Description 05/30/2024 Orders Only [facility] [address] [place] [phone] Adelfo Vaz MD [address] [place] [address] Gastrointestinal stromal tumor, unspecified site [...] often do you attend chur ch or mandaen services? Never 02/23/2023 Do you belong to any clubs o r organizations such as baptist groups, unions, [employer] or athletic groups, or school groups? No [...] and heating? Not hard at all 02/23/2023 [facility] [place] of Occupat ional Health - Occupational Stress [...] place to sleep or slept in a chcf (including now)? No 02/23/2023 Sex and Gender [...] Description 09/19/2024 1:00 PM MDT Office Visit [facility] [address] [place] [phone] María Warren MD [facility] [place], [place] [phone] Scheduled Orders Name Type Priority Associated Diagnoses Orde r Schedule Porphobilinogen, Quant, Urine Lab Routine Gastrointestinal stromal tumor, unspecified site (CMS/HCC) 1 Occurrences starting 05/30/2024 until 05/30/2025 documented as of this encounter Visit Diagnoses Diagnosis Gastrointestinal stromal tumor, unspecified site (CMS/HCC) documented in this encounter Additional Health Concerns Assessment Noted Time PHQ-9 Depression Total Score: 0 12/11/20 23 9:47 AM MST A fall risk assessment has been complete d for the patient 10/02/2021 10:51 AM MST documented as of this encounter Care Teams Music Educator Relationship Specialty Start Date End Date María Warren MD [address] [place] [address] PCP - General Family Medicine 03/02/23 documented as of this encounter
--- OUTSIDE RECORDS SUMMARY | 2024-08-31 20:23 | XMS_ITS | Encounter Summary ---
Author Organization [facility] Address [address] [place] [address] Care Team Providers Care Evaporator Name Role Phone María Warren MD Primary Care Provider [phone] Reason for Visit * Reason Comments UTI Urgency, burning sen sation, minor blood in urine, took azo this morning Encounter Details Date Type Department Care Team (Late st Contact Info) Description 06/02/2024 2:00 PM MDT Office Visit [facility] [address] [place] [phone] María Warren MD [address] [place] [phone] UTI (urinary tract infection) (Primary Dx); Dysuria; 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 Patient declined 06/02/2024 Do you belong to any clubs o r organizations such as samaritan groups, unions, fraternal or athletic groups, or [...] and heating? 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 * María Warren MD - 06/02/2024 2:00 PM MDT [facility] [address] [place] [phone] Assessment/Plan: Recently treated for UTI at urgent care Signs/symptoms improved with cephalosporin but returned after treatment Reports urgent care notified her that the culture grew e coli and that she was on an appropriate antibiotic Unable to run urinalysis today 2/2 azo -treat empirically for presumed upper/ascending UTI with cipro. Reviewed risks. 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 Other Visit Diagnoses UTI (urinary tract infection) - Primary Relevant Medications ciprofloxacin (CIPRO) 500 mg tablet Dysuria Relevant Medications ciprofloxacin (CIPRO) 500 mg tablet Other Relevant Orders Urine Culture Subjective: Zakia Cruz is a 74 y.o. female here for Chief Complaint Patient presents with UTI Urgency, burning sensation, minor blood in urine, took azo this morning Went to urgent care Thursday E coli Signs/symptoms resolved and then returned after finishing antibiotic Has fallen twice in the last 10 days Tripped getting on bus, was wearing flip flops [place] and tripped, caught sandals The following portions of the history were reviewed and updated as appropriate: allergies, current medications, past family/medical/social/surgical histories, and problem list. AMB REVIEW OF SYSTEMS: All other review of systems negative. Significant positives and negatives as above. Objective: Visit Vitals BP 114/70 (BP Location: Left arm, Patient Position: Sitting, BP Cuff Size: Adult) Pulse 76 Temp 36.7 ??C (98 ??F) (Tympanic) SpO2 94% OB Status Postmenopausal Smoking Status Never Physical Exam Vitals reviewed. Constitutional: General: no acute distress. Appearance: Normal appearance. Not ill-appearing or toxic-appearing. HENT: Head: Normocephalic and atraumatic. Eyes: Conjunctiva/sclera: Conjunctivae normal. Cardiovascular: Rate and Rhythm: Normal rate. Pulmonary: Effort: Pulmonary effort is normal. Neurological: General: No focal deficit present. Mental Status: Alert Psychiatric: Mood and Affect: Mood normal. Signed by: María Warren MD 06/03/2024, 11:39 AM This record may be prepared with the assistance of voice recognition technology. If clarification or correction is needed for patient care, please contact this author. documented in this encounter Plan of Treatment Upcoming Encounters Date Type Department Care Team (Late st Contact Info) Description 09/19/2024 1:00 PM MDT Office Visit [facility] [address] [place] [phone] María Warren MD [address] [place] [phone] documented as of this encounter Results * (ABNORMAL) Urine Culture (06/02/2024 2:42 PM MDT) Urine Culture ESCHERICHIA COLI(A) 06/04/2024 7:43 AM MDT [facility] Urine Culture 1,000 - 9,000 CFU/mL Mixed Bacteria(A) 06/04/2024 7:43 AM [facility] Comment:Growth indicative of mixed bacterial microbiota; possible contamination. ??Suggest appropriate recollection with timely delivery to laboratory if clinically indicated. Urine Urine specimen obtained by clean catch procedure / Unknown Non-blood Collection / Unknown 06/02/2024 2:42 PM MDT 06/02/2024 2:42 PM [facility] - 06/04/2024 7:43 AM [facility]DMegan The isolation of more than 100,000 CFU/mL [...] an uncomplicated outpatient population likely indicates contamination. ??Winger counts of <100,000 CFU/mL in high-quality voided [...] María Warren MD LAB MICROBIOLOGY - 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
--- OUTSIDE RECORDS SUMMARY | 2024-08-31 20:23 | XMS_ITS | Encounter Summary ---
Author Organization [facility] Address [address] [place] [address] Care Team Providers Care Container Finishing Inspector Name Role Phone María Warren MD Primary Care Provider [phone] Encounter Details Date Type Department Care Team (Late st Contact Info) Description 10/21/2023 Orders Only [facility] [address] [place] [phone] María Warren MD [address] [place] [address] Social History Tobacco Use Types Packs/Day Years [...] How often do you attend chur or shinto services? Never 02/23/2023 Do you belong to any clubs o r organizations such as mosque groups, unions, fraternal or athletic groups, or [...] and heating? Not hard at all 02/23/2023 [facility] of Occupat ional Health - Occupational Stress [...] a skilled nursing (including now)? No 02/23/2023 Sex and Gender [...] Description 09/19/2024 1:00 PM MDT Office Visit [facility] [address] [place] [phone] María Warren MD [address] [place] [phone] documented as of this encounter Procedures Procedure Name Priority Date/Time Associated Diagnosis Comments COLONOSCOPY Routine 07/09/2022 documented in this encounter Results * Colonoscopy (07/09/2022) Anatomical Region Laterality Modality Other 07/09/2022 Historical Provider MD JAMSHID Lyon documented in this encounter Visit Diagnoses Not on filedocumented in this encounter Additional Health Concerns Assessment Noted Time PHQ-9 Depression Total Score: 0 07/03/20 3:57 PM MDT A fall risk assessment has been complete d for the patient 10/02/2021 10:51 AM [facility] documented as of this encounter Care Teams Container Finishing Inspector Relationship Specialty Start Date End Date María Warren MD [facility] [place] [address] PCP - General Family Medicine 03/02/23 documented as of this encounter
[2024-08-31 20:35] LABS: Slide Review Reflex No
[2024-08-31 20:38] LABS: Chloride* 105 mmol/L (96-114); Potassium* 3.6 mmol/L (3.6-5.1); Sodium* 140 mmol/L (135-149)
[2024-08-31 20:40] LABS: Creatinine* 0.7 mg/dL (0.5-1.5); Est. Creatinine Clearance* 42.62; Estimated Glomerular Filt Rate 91 ml/min
[2024-08-31 20:41] LABS: Anion Gap 9 mEq/L (7-15); Blood Urea Nitrogen* 17 mg/dL (7-30); Calcium* 9.5 mg/dL (8.4-10.6); Carbon Dioxide* 26 mmol/L (20-32); Glucose* 116 mg/dL (60-115)
--- NOTE | 2024-08-31 20:42 | ED_ITS ---
HPI - General Adult General Date Seen: 08/31/24 Chief complaint: Abdominal Pain Stated complaint: Cyclical episodes of extreme diahrea, itchy palms Time Seen by Provider: 08/31/24 19:10 Source: patient Mode of arrival: ambulatory Limitations: no limitations History of Present Illness HPI narrative: Patient is a 74-year-old female presenting for abdominal discomfort. Patient states for several years she will have intermittent episodes of abdominal pain, severe diarrhea, syncope, pruritic hands. She has been seeing multiple providers for this and she was told next time she starts having symptoms she should go to the emergency department to have certain lab work done to help confirm or rule out certain diagnostics. She brought the paperwork for which labs are needed. She states she started to have the left lower quadrant abdominal pain that previously would occur the symptoms and she could feel it coming on so she came to the emergency department. States this exact same sympt oms as always and she has had multiple images done of hurt to evaluat it. Is not currently having nausea. Denies chest pain, shortness of breath, lightheadedness, dizziness, weakness, numbness. She does feel like her heart is racing because right her anxiety. States the symptoms started after she was on the way here. She did come straight from a restaurant after she when out to eat. No history of heart disorders. Has never had an arrhythmia before. Related Data Home Medications ?Medication ?Instructions ?Recorded ?Confirmed acyclovir 400 mg tablet 400 mg PO QPM 08/31/24 08/31/24 pantoprazole 40 mg tablet,delayed 40 mg PO QAM 08/31/24 08/31/24 release Previous Rx's ?Medication ?Instructions ?Recorded apixaban 5 mg tablet (Eliquis) 5 mg PO BID #60 tabs 08/31/24 diltiazem HCl 120 mg 120 mg PO DAILY #30 caps 08/31/24 capsule,extended release 24 hr (Cardizem CD) Allergies Allergy/AdvReac Type Severity Reaction Status Date / Time Penicillins Allergy Verified 08/31/24 19:27 Review of Systems 2 Status of ROS: Reports: 10 or more systems reviewed and unremarkable except as noted in History and below Exam Narrative: Exam Narrative: Const: Well-nourished, Well-developed, in mild distress Eyes: PERRL, no conjunctival injection, and symmetrical lids HENT: Atraumatic external nose and ears. Moist mucous membranes. Neck: Symmetric, trachea midline, No thyromegaly. CVS: Regular rhythm and tachycardic, No murmurs or gallops. Peripheral pulses 2+ and equal in all extremities RESP: Unlabored respiratory effort. Clear to auscultation bilaterally. GI: Mild left lower quadrant tenderness, Nondistended, No rebound or guarding. MSK:Extremities w/o deformity, Normal Active ROM Skin: Warm, Dry. No rashes or lesions. Neuro: Normal Muscle tone, No focal neurological deficits. Psych: Awake, Alert, & Oriented x3. Appropriate mood and affect. Const: Vital Signs, click to edit/add: Vital Signs - 24 hr 08/31/24 19:23 08/31/24 20:14 Temperature 97.3 F L Pulse Rate [Pulse Oximeter] 117 H Respiratory Rate 16 Blood Pressure 157/97 H Blood Pressure [Ri ght Upper Arm] 145/103 H Pulse Oximetry 97 Oxygen Delivery Me thod Room Air Course Vital Signs Vital signs: Initial Vital Signs Temperature 97.3 F L 08/31/24 19:23 Temperature Source Temporal Artery Scan 08/31/24 19:23 Pulse Rate 117 H 08/31/24 19:23 Respiratory Rate 16 08/31/24 19:23 Blood Pressure 145/103 H 08/31/24 19:23 Blood Pressure Mean 117 H 08/31/24 19:23 Blood Pressure Position Supine 08/31/24 19:23 Pulse Oximetry 97 08/31/24 19:23 Oxygen Delivery Method Room Air 08/31/24 19:23 Vital Signs Temperature 97.3 F L 08/31/24 19:23 Pulse Rate 117 H 08/31/24 19:23 Respiratory Rate 16 08/31/24 19:23 Blood Pressure 145/103 H 08/31/24 19:23 Pulse Oximetry 97 08/31/24 19:23 Oxygen Delivery Method Room Air 08/31/24 19:23 Temperature 97.3 F L 08/31/24 19:23 Pulse Rate 117 H 08/31/24 19:23 Respiratory Rate 16 08/31/24 19:23 Blood Pressure 157/97 H 08/31/24 20:14 Pulse Oximetry 97 08/31/24 19:23 Oxygen Delivery Method Room Air 08/31/24 19:23 Medications Administered Medications: Discontinued Medications Generic Name Dose Route Start Last Admin Trade Name Lázaro PRN Reason Stop Dose Admin Diltiazem HCl 20 mg 08/31/24 20:33 08/31/24 20:50 Diltiazem 5 Mg/Ml Inj IVP 08/31/24 20:34 20 mg ONCE ONE Administration Sodium Chloride 500 mls @ 500 mls/hr 08/31/24 19:38 08/31/24 21:16 0.9 % Sodium Chloride 500 Ml IV 08/31/24 20:37 Infused .Q1H ONE Infusion Medical Decision Making MDM Narrative Medical decision making narrative: Patient is a 74-year-old female presenting to emergency department for lab work to test for her abdominal pain. Considering this is chronic abdominal issues she has been having I do not believe imaging is necessary and she is in agreement. She states she has had multiple CT scan colonoscopy is all done a ready for these exact same symptoms. She has is hoping to get specific labs done as recommended by her specialist to possibly help with diagnostics. I will order the lab work. Further workup with this abdominal pain and diarrhea is not necessary at this time in my opinion. Of note though it does appear she has also in atrial flutter. Has no history of atrial flutter. Has had some heart palpitations that she just noticed on the way here but she thought it was due to anxiety about her symptoms because when she does start having symptoms she has to go to the bathroom very frequently and immediately. Is not noticing the palpitations as much anymore. Has never been told she has had an arrhythmia before. Is not on any blood thinners. Unsure why she is in a flutter but I will do a EKG, troponin, CBC, BMP. A tryptase, histamine, complement panel was all was recommended by her specialist. Will also try to see if fluids will help her symptoms. Due to the current shortage I did give only a 500 mL bolus as that is the quantity we have the most of. CBC, BMP, troponin showed no concerning abnormalities. EKG shows a flutter per my interpretation. Her heart is racing around 120 even after the fluids so I will try Cardizem. I cannot say for sure how long she has been in a flutter and she is stable so cardioversion is not recommended. After the Cardizem her heart rate stayed around 90 to low 100's and she is not having any symptoms at this time. At this point I do feel comfortable discharging her home and I will give her Luis Felipe and Radha. She will return to [place] in 2 weeks where her primary care provider is. She plans on calling her PCP tomorrow to update them on all this and ask what they recommend. I do believe she is safe for follow-up in a couple weeks. Lab Data Labs: Lab Results 08/31/24 08/31/24 Range/Units 19:39 20:03 WBC 6.64 (4.50-11.00) K/uL RBC 5.04 (4.00-5.20) m/uL Hgb 14.9 (12.0-16.0) gm/dL Hct 43.7 (33.0-51.0) % MCV 87 (80-100) fL MCH 30 (26-34) pg MCHC 34 (32-36) gm/dL RDW Coeff of Raj 12.5 (11.5-15.5) % Plt Count 135 L (140-440) K/uL Neut % (Auto) 50.6 (42.0-72.0) % Lymph % (Auto) 36.7 (20-44) % [place] % (Auto) 10.2 (0.0-11.0) % Eos % (Auto) 1.5 (0.0-7.0) % Baso % (Auto) 0.8 (0.0-3.0) % Neut # (Auto) 3.36 (1.7-7.0) K/uL Lymph # (Auto) 2.44 (0.90-2.90) K/uL [place] # (Auto) 0.70 (0.00-0.90) K/UL Eos # (Auto) 0.10 (0.00-0.50) K/uL Baso # (Auto) 0.05 (0.00-0.30) K/uL Abs Immat Gran (auto) 0.01 (0.00-0.30) K/uL Imm/Tot Granulo (auto) 0.2 % Sodium 140 (135-149) mmol/L Potassium 3.6 (3.6-5.1) mmol/L Chloride 105 (96-114) mmol/L Carbon Dioxide 26 (20-32) mmol/L Anion Gap 9 (7-15) mEq/L BUN 17 (7-30) mg/dL Creatinine 0.7 (0.5-1.5) mg/dL Estimated Creat Clear 42.62 Estimated GFR 91 ml/min Glucose 116 H (60-115) mg/dL Calcium 9.5 (8.4-10.6) mg/dL POC Troponin I 0.00 L (0.01-0.04) ng/ml ECG Data Attestation: I personally reviewed and interpreted this ECG as follows: Prior ECG tracings: not available for review Interpretation: Very a flutter with a rate of 100 beats per minute, normal QT, normal axis, no ST or T-wave abnormalities. Discharge Plan Discharge Clinical Impression: Atrial flutter Qualifiers: Atrial flutter type: unspecified Qualified Code(s): I48.92 - Unspecified atrial flutter Abdominal pain Qualifiers: Abdominal location: left lower quadrant Qualified Code(s): R10.32 - Left lower quadrant pain Patient Disposition: Home, Self-Care Condition: Stable Instructions: Atrial Flutter (DC) Additional Instructions: You have atrial flutter. I put you on Cardizem to keep your rate under control and Eliquis to prevent clots from forming. I recommend calling your primary care provider in [place] tomorrow to set up follow-up for this. If he started developing chest pain or shortness of breath return to the emergency department immediately for re-evaluation. Also return for any other new or worsening symptoms. Your lab work were all send out tests at our institution and will return in the next few days. Prescriptions: New diltiazem HCl [Cardizem CD] 120 mg capsule,extended release 24hr 120 mg PO DAILY Qty: 30 0RF Eliquis 5 mg tablet 5 mg PO BID Qty: 60 0RF No Action acyclovir 400 mg tablet 400 mg PO QPM pantoprazole 40 mg tablet,delayed release (DR/EC) 40 mg PO QAM Follow Up/Referrals: Provider,Not a Local [Primary Care Provider] - Stand Alone Forms: [place] [facility] Instructions
[2024-08-31] MEDS: dilTIAZem 5 MG/ML inj 20 MG IVP (20:50)
[2024-08-31] MEDS: APIXABAN 5 MG TABLET PO (21:43)
== END 2024-08-31 21:46 | disposition home or self-care (01) ==
PROVIDERS: Emergency Provider Student in an Organized Health Care Education/Training Program
DX: R10.32 Left lower quadrant pain (principal); I48.92 Unspecified atrial flutter
CPT/HCPCS: 36415; 80048; 83520; 84484; 85025; 86160; 86161; 93005; 99283; 99284; A9270; J7030